=== PATIENT | female | born 2000 | race Caucasian/White ===

== ENCOUNTER 2025-01-22 18:27 | Outpatient (REF) | payer OTHER, SELFPAY | END 2025-01-22 18:28 | disposition home or self-care (01) | LOC: LAB 18:27 | PROVIDERS: Family Provider Urology; Visit Provider Obstetrics & Gynecology | DX: Z01.419 Encounter for gynecological examination (general) (routine) without abnormal findings (principal) | CPT/HCPCS: 88175 ==

== ENCOUNTER 2025-05-16 12:21 | Outpatient (RCR) | payer OTHER, SELFPAY | END 2025-05-30 17:03 | disposition home or self-care (01) | LOC: LAB 12:21 | PROVIDERS: Family Provider Urology; Visit Provider Obstetrics & Gynecology | DX: Z51.81 Encounter for therapeutic drug level monitoring (principal); N92.6 Irregular menstruation, unspecified | CPT/HCPCS: 36415; 84702 ==

== ENCOUNTER 2025-06-06 08:45 | Outpatient (OUT) | payer OTHER, SELFPAY ==
--- OUTSIDE RECORDS SUMMARY | 2023-11-11 04:30 | XMS_ITS | Continuity of Care Document ---
Author Organization [facility] Address [address] [place] [address] Phone Care Team Providers Care Metrologist Name Role Phone Betty Carrera DDS Unavailable [...] Diagnoses Date Provider Providers Copied on Encounter [facility], [address] [place] [address], [id number], tel:[phone] Dental Clinic dn (chief complaint) Encounter for screening for dental disordersBody mass index [BMI] 21.0-21.9, adult Deandre HERNANDEZ Betty. . tel:[phone] Family History Family Member Type Diagnosis Age At Onset No Information Payers Payer name Insurance type Covered libertarian ID Mickey painter(s) D Hum[employer] Medicaid D[employer]quest [facility] [id number] [id number] D Medicaid ap - [facility] [id number] Social History Type Description Quantity Date Captured [...]
--- OUTSIDE RECORDS SUMMARY | 2025-06-06 08:50 | XMS_ITS | Encounter Summary ---
Author Organization [facility] Address [address] [place] [address] Care Team Providers Care Credit Collections Rep Name Role Phone Philip Francis DO Unavailable [phone] Encounter Details Date Type Department Care Team (Late Contact Info) Description 02/01/2025 Orders Only YADIRA SHOEMAKER [address] [place] [address] [place] [phone] Radha Valero MA [address] [facility] [place] [address] Social History Tobacco Use Types Packs/Day Years Used Date Smoking Tobacco: Never Passive Smoke Exposure: Never Smokeless Tobacco: Never Alcohol Use Standard Drinks/Week Comments Never 0 (1 standard drink = 0.6 oz pur e alcohol) Comments No Sex and Gender Information Value Date Recorded Sex Assigned at Not on file Legal Sex Female 10:11 PM EDT Gender Identity Not on file Sexual Orientation Not on file documented as of this encounter Plan of Treatment Upcoming Encounters Date Type Department Care Team (Late Contact Info) Description 01/30/2026 11:00 AM EDT Office Visit YADIRA SHOEMAKER [address] [place] [address] [place] [address] Efrem Rousseau DO [address] [facility] [address] [place], [place] [id number] documented as of this encounter Procedures Procedure Name Priority Date/Time Associated Diagnosis Comments PAP SMEAR Routine 01/22/2025 12:00 AM EDT documented in this encounter Results * Pap Smear (01/22/2025 12:00 AM EDT) Swab Cervical swab / Unknown us Efrem Rousseau DO LAB CYTOLOGY ORDERABLES Final Re sult EXTERNAL LAB documented in this encounter Visit Diagnoses Not on filedocumented in this encounter Care Teams Credit Collections Rep Relationship Specialty Start Date End Date Philip Francis DO [address] [facility] [address] [place] [address] PCP - Medical [place] [employer] 08/31/23 99 documented as of this encounter
--- OUTSIDE RECORDS SUMMARY | 2025-06-06 08:50 | XMS_ITS | Encounter Summary ---
Author Organization [facility] Address [address] [place] [address] Care Team Providers Care Varitype Operator Name Role Phone Philip Francis DO Unavailable [phone] Encounter Details Date Type Department Care Team (Late Contact Info) Description 05/30/2025 Clinisync Result Encounter [facility] External Department Unsolicited Efrem Rousseau DO [address] [place] [address] Social History Tobacco Use Types Packs/Day Years [...] Encounters Date Type Department Care Team (Late st Contact Info) Description 01/30/2026 11:00 AM EDT Office Visit YADIRA SHOEMAKER [address] [facility] [place] [phone] Efrem Rousseau DO [address] [place], [facility]11 documented as of this encounter Procedures Procedure Name Priority Date/Time Associated Diagnosis Comments [facility] PREG QUANT HCG Routine 05/30/2025 11 :15 AM EDT documented in this encounter Results * [facility] PREG QUANT HCG (05/30/2025 11:15 AM EDT) HCG QUANTITATIVE 37 mIU/mL [facility] Comment: 5-50 0.2-1 WEEK 50-500 1-2 WEEKS 100-5,000 2-3 WEEKS 500-10,000 3-4 WEEKS 1,000-50,000 4-5 WEEKS 10,000-100,000 5-6 WEEKS 15,000-200,000 6-8 WEEKS 10,000-100,000 2-3 MONTHS 05/30/2025 11:1 5 AM EDT 05/30/2025 12:00 PM EDT Narrative CLINISYNC - 05/30/2025 12:00 PM EDT Efrem Rousseau DO [facility] Final [facility] documented in this encounter Visit Diagnoses Not on filedocumented in this encounter Care Teams Varitype Operator Relationship Specialty Start Date End Date Philip Francis DO [address] [facility] [address] [place] [address] PCP - Medical [place] [employer] 08/31/23 99 documented as of this encounter
--- OUTSIDE RECORDS SUMMARY | 2025-06-06 08:50 | XMS_ITS | Clinical Summary ---
Author Organization [facility] Address [address] [place] [address] Care Team Providers Care Assistant Hvac Mechanic Name Role Phone Philip Francis DO Unavailable [phone] Allergies Active Allergy Reactions Criticality Noted Date Comments Ibuprofen Itching 01/25/2024 Other Reaction(s): Swelling Medications No known medications Active Problems Problem Noted Date Diagnosed Date Body mass index (BMI) of 19.0-19.9 in adult 10/31 Dysuria 11/13/2024 Frequency of urination 11/13/2024 Incomplete bladder emptying 11/13/2024 Mixed incontinence 11/13/2024 Nonsmoker 11/13/2024 Encounters Date Type Department Care Team Description 05/30/2025 Clinisync Result Encounter [facility] External Department Unsolicited Efrem Rousseau DO 05/24/2025 Clinisync Result Encounter [facility]OMS External Department Unsolicited Efrem Rousseau DO 05/20/2025 [place] [address] Radha Valero MA Error (VOID this visit) 05/20/2025 Telephone [facility] SHOEM[facility]ER [address] [place] [address] Radha Valero MA 05/16/2025 11:20 AM EDT Office Visit [facility] [place] SHOEMAKER [address] [place] [address] Efrem Rousseau DO Missed menses 05/16/2025 Clinisync Result Encounter NOMS External Department Unsolicited Efrem Rousseau DO 05/16/2025 Bamboo flowsheet [facility] [place] SHOEMAKER [address] [facility] [address] Efrem Rousseau DO 04/22/2025 11:00 AM EDT Office Visit [facility] [place] [address] Efrem Rousseau DO Missed menses 04/22/2025 Bamboo flowsheet [facility] [place] SHOEMAKER [address] [place] [address] [place] [address] Efrem Rousseau DO from Last 3 Months Family History Medical History Relation Name Comments Diabetes Maternal Grandfather Lymphoma Maternal Grandfather high blood pressure Maternal Grandfather Breast cancer Mother high blood pressure Mother Relation Name Status Comments Maternal Grandfather Mother Social History Tobacco Use Types Packs/Day Years Used Date Smoking Tobacco: Never Passive Smoke Exposure: Never Smokeless Tobacco: Never Tobacco Cessation:Counseling Given: Not Answered Alcohol Use Standard Drinks/Week Comments Never 0 (1 standard drink = 0.6 oz pur e alcohol) Comments No Sex and Gender Information Value Date Recorded Sex Assigned at Not on file Legal Sex Female 10:11 PM EDT Gender Identity Not on file Sexual Orientation Not on file Last Filed Vital Signs Vital Sign Reading Time Taken Comments Blood Pressure 100/62 05/16/2025 11:49 AM EDT Pulse 85 11/13/2024 7:47 PM EST Temperature 36.2 C (97.2 F) 11/13/2024 7:47 PM EST Respiratory Rate - - Oxygen Saturation 99% 11/13/2024 7:47 PM EST Inhaled Oxygen Concentration - - Weight 51.6 kg (113 lb 12.8 oz) 025 11:49 AM EDT Height 154.9 cm (5' 1 ) 10/03/2020 12:0 0 PM EST Body Mass Index 21.5 10/03/2020 12:00 PM EST Plan of Treatment Upcoming Encounters Date Type Department Care Team (Late st Contact Info) Description 01/30/2026 11:00 AM EDT Office Visit YADIRA [place] [address] Efrem Rousseau, DO [address] [place] [address] [place] [address] Health Maintenance Due Date Last Done Comments Influenza Vaccine (#1) 2025 Procedures Procedure Name Priority Date/Time Associated Diagnosis Comments TB PREG QUANT HCG Routine 05/30/2025 11 :15 AM EDT TBH PREG QUANT HCG Routine 05/24/2025 10 :35 AM EDT [facility] PREG QUANT HCG Routine 05/16/2025 12 :35 PM EDT POCT , URINE Routine 04/22/2025 11:18 AM EDT Missed menses from Last 3 Months Results * [facility] PREG QUANT HCG (05/30/2025 11:15 AM EDT) Only the most recent of3 resultswithin the time period is included. HCG QUANTITATIVE 37 mIU/mL [facility] Comment: 5-50 0.2-1 WEEK 50-500 1-2 WEEKS 100-5,000 2-3 WEEKS 500-10,000 3-4 WEEKS 1,000-50,000 4-5 WEEKS 10,000-100,000 5-6 WEEKS 15,000-200,000 6-8 WEEKS 10,000-100,000 2-3 MONTHS 05/30/2025 11:1 5 AM EDT 05/30/2025 12:00 PM EDT Narrative CLINISYNC - 05/30/2025 12:00 PM EDT us Efrem Rousseau DO CLINISY[facility] Final Result [facility] * (ABNORMAL) POCT , urine manually resulted (04/22/2025 11:18 AM EDT) Preg Test, Ur Positive Negative Urine 04/22/2025 11:1 8 AM EDT Efrem Rousseau DO POINT OF CARE TEST ENTER/EDIT OR DERABLES Final Result from Last 3 Months Insurance [employer] Care Teams Assistant Hvac Mechanic Relationship Specialty Start Date End Date Philip Francis DO [address] [place] [address] PCP - Medical [place] [employer] 08/31/23 99
--- OUTSIDE RECORDS SUMMARY | 2025-06-06 08:50 | XMS_ITS | Encounter Summary ---
Author Organization [facility] Address [address] [place] [address] Care Team Providers Care Oriental Medicine Practitioner Name Role Phone Philip Francis DO Unavailable [phone] Encounter Details Date Type Department Care Team (Late Contact Info) Description 05/24/2025 Clinisync Result Encounter NOMS External Department Unsolicited Efrem Rousseau, DO [address] [place] [id number] Social History Tobacco Use Types Packs/Day Years [...] AM EDT Office Visit YADIRA SHOEMAKER [address] [facility] [place] [place] [phone] Efrem Rousseau DO [address] [place], [facility]11 documented as of this encounter Procedures Procedure Name Priority Date/Time Associated Diagnosis Comments [facility] PREG QUANT HCG Routine 05/24/2025 10 :35 AM EDT documented in this encounter Results * [facility] PREG QUANT HCG (05/24/2025 10:35 AM EDT) HCG QUANTITATIVE 91 mIU/mL [facility] Comment: 5-50 0.2-1 WEEK 50-500 1-2 WEEKS 100-5,000 2-3 WEEKS 500-10,000 3-4 WEEKS 1,000-50,000 4-5 WEEKS 10,000-100,000 5-6 WEEKS 15,000-200,000 6-8 WEEKS 10,000-100,000 2-3 MONTHS 05/24/2025 10:3 5 AM EDT 05/24/2025 10:36 AM EDT Narrative CLINISYNC - 05/24/2025 11:29 AM EDT Efrem Rousseau DO [facility] documented in this encounter Visit Diagnoses Not on filedocumented in this encounter Care Teams Oriental Medicine Practitioner Relationship Specialty Start Date End Date Philip Francis DO [address] [facility] [address] [place] [address] PCP - Medical [place] [employer] 08/31/23 99 documented as of this encounter
== END 2025-06-06 08:46 | disposition home or self-care (01) ==
LOC: LAB 08:47
PROVIDERS: Family Provider Urology; Visit Provider Obstetrics & Gynecology
DX: N92.6 Irregular menstruation, unspecified (principal)
CPT/HCPCS: 36415; 84702

== ENCOUNTER 2025-06-12 11:04 | Outpatient (RCR) | payer OTHER, SELFPAY | END 2025-06-29 23:59 | disposition home or self-care (01) | LOC: LAB 11:04 | PROVIDERS: Family Provider Urology; Visit Provider Obstetrics & Gynecology | DX: N92.6 Irregular menstruation, unspecified (principal) | CPT/HCPCS: 36415; 84702 ==

== ENCOUNTER 2025-08-13 09:34 | Outpatient (OUT) | payer OTHER, SELFPAY ==
--- OUTSIDE RECORDS SUMMARY | 2025-08-13 09:37 | XMS_ITS | Encounter Summary ---
Author Organization [facility] Address [address] [place] [address] Care Team Providers Care Web Press Jogger Name Role Phone Philip Francis DO Unavailable [phone] Encounter Details Date Type Department Care Team (Late Contact Info) Description 06/12/2025 Results Follow-Up YADIRA SHOEMAKER [address] [place] [address] Candace Yanez LPN [address] [employer] [place] [id number] [facility] PREG QUANT HCG Social History Tobacco Use Types Packs/Day Years [...] on file documented as of this encounter Miscellaneous Notes * Result Encounter Note - Candace Yanez LPN - 06/12/2025 8:46 AM EDT Left pt detailed voicemail to lab drawn this week documented in this encounter Plan of Treatment Upcoming Encounters Date Type Department Care Team (Late Contact Info) Description 01/30/2026 11:00 AM EDT Office Visit [facility]OMP[facility]OEMAKER [address] [facility] [address] Efrem Rousseau DO [address] [place] [address] [place] [address] documented as of this encounter Visit Diagnoses Not on filedocumented in this encounter Care Teams Web Press Jogger Relationship Specialty Start Date End Date Philip Francis DO [address] [place] [address] PCP - Medical [place] [employer] 08/31/23 99 documented as of this encounter
--- OUTSIDE RECORDS SUMMARY | 2025-08-13 09:37 | XMS_ITS | Encounter Summary ---
Author Organization [facility] Address [address] [place] [address] Care Team Providers Care Hydrographic Surveyor Name Role Phone Philip Francis DO Unavailable [phone] Encounter Details Date Type Department Care Team (Late Contact Info) Description 06/12/2025 Results Follow-Up [facility]A [facility]AKER [facility] [place] [place] [address] Candace Yanez LPN [address] [email or web address] [place] [id number] [facility] PREG QUANT HCG Social History Tobacco [...] Note - Candace Yanez LPN - 06/12/2025 1:26 PM EDT Pt notified documented in this encounter Plan of Treatment Upcoming Encounters Date Type Department Care Team (Late Contact Info) Description 01/30/2026 11:00 AM EDT Office Visit [facility] SHOEMAKER [facility] [place] [place] [address] Efrem Rousseau DO [address] [facility] [place] [address] documented as of this encounter Visit Diagnoses Not on filedocumented in this encounter Care Teams Hydrographic Surveyor Relationship Specialty Start Date End Date Philip Francis DO [address] [facility] [address] [place] [address] PCP - Medical [place] [employer] 08/31/23 99 documented as of this encounter
--- OUTSIDE RECORDS SUMMARY | 2025-08-13 09:37 | XMS_ITS | Encounter Summary ---
Author Organization [facility] Address [address] [place] [address] Care Team Providers Care Industrial Analyst Name Role Phone Philip Francis DO Unavailable [phone] Encounter Details Date Type Department Care Team (Late Contact Info) Description 02/01/2025 Orders Only YADIRA SHOEMAKER [address] [place] [address] [place] [phone] Radha Valero MA [address] [place] [address] Social History Tobacco Use Types Packs/Day Years [...] 11:00 AM EDT Office Visit YADIRA SHOEMAKER [address] [place] [address] [place] [address] Efrem Rousseau DO [address] [facility] [address] [place], [place] [phone] documented as of this encounter Procedures Procedure Name Priority Date/Time Associated Diagnosis Comments PAP SMEAR Routine 01/22/2025 12:00 AM EDT documented in this encounter Results * Pap Smear (01/22/2025 12:00 AM EDT) Swab Cervical swab / Unknown us Efrem Rousseau DO LAB CYTOLOGY ORDERABLES Final Re sult EXTERNAL LAB documented in this encounter Visit Diagnoses Not on filedocumented in this encounter Care Teams Industrial Analyst Relationship Specialty Start Date End Date Philip Francis DO [address] [facility] [address] [place] [address] PCP - Medical [place] [employer] 08/31/23 99 documented as of this encounter
--- OUTSIDE RECORDS SUMMARY | 2025-08-13 09:39 | XMS_ITS | CCD ---
Author Organization [facility] Care Team Providers Care Marketing Operations Associate Name Role Phone Hardik Wooten Unavailable DR EDGARD PERKINS Primary Care Unavailable CARLOS, DR SHAH Admitting Unavailable CARLOS, DR SHAH Consulting Unavailable CARLOS, DR SHAH Attending Unavailable JAILYN ROWLEY Consulting Unavailable CHARLEEN Jha Attending Provider [phone] Sisi Jha Attending Unavailable Sisi Jha Admitting Unavailable NON STAFF Primary Care Unavailable NON STAFF Primary Care Provider UnavailGERMAN May Primary Care Physician GERMAN LEDESMA Attending Unavailable GERMAN LEDESMA Admitting Unavailable Philip Francis DO Unavailable GERMAN LEDESMA A Attending Unavailable BALTAZAR GERMAN A Attending Unavailable FOX LEDESMAY A Attending Unavailable FOX LEDESMAY A Attending Unavailable BALTAZAR GERMAN A Admitting Unavailable GERMAN LEDESMA A Attending Unavailable Philip Francis DO Unavailable [phone] BEN ROUSSEAU Attending Unavailable BEN ROUSSEAU Attending Unavailable LICHA ARGUELLES Attending Unavailable BEN ROUSSEAU Attending Unavailable Allergies Allergy Classification Reported Allergen(s) Allergy Type Date of Onset Reaction(s) Facility (20 sources) Ibuprofen; Translations: [ibuprofen] Drug Allergy 4 Swelling (morphologic abnormality), Itching [facility] (1 source) Ibuprofen Drug Allergy [facility] (1 source) Milk Drug allergy (disorder) [facility] (1 source) Ibuprofen Drug Allergy 4 [facility] (3 sources) Milk Products; Translations: [Milk Products] Food allergy Cramping sensation quality (qualifier value) [facility] Medications Current Medications Medication Drug Class(es) Dates Sig (Normalized) Sig (Original) ergocalciferol 0.05 mg oral capsule (8 sources) Provitamin D2 Compound Start: 09-07-2024 End: 04-22-2025 take 1 capsule by mouth once daily ergocalciferol (Vitamin D-2) 50 MCG (1999 UT) capsule Take 1 capsule by mouth Daily 09/07/2024 04/22/2025 Discontinued (Other) fluconazole 150 mg oral tablet (2 sources) Azole Antifungal Start: 10-19-2021 nitrofurantoin, macrocrystals 25 mg / nitrofurantoin, monohydrate 75 mg oral capsule (8 sources) Nitrofuran Antibacterial Start: 01-22-2025 End: 01-29-2025 take 1 capsule by mouth in the morning nitrofurantoin, macrocrystal-monohy drate, (Macrobid) 100 MG capsule Indications: Frequency of urination Take 1 capsule (100 mg) by mouth in the morning and 1 capsule (100 mg) before bedtime. Do all this for 7 days. 14 capsule 01/22/2025 01/29/2025 Active Start: 11-13-2024 End: 11-20-2024 take 1 capsule by mouth in the morning nitrofurantoin, macrocrystal-monohydrate , (Macrobid) 100 MG capsule Indications: Acute cystitis with hematuria Take 1 capsule (100 mg) by mouth in the morning and 1 capsule (100 mg) before bedtime. Do all this for 7 days. 14 capsule 11/13/2024 11/20/2024 Active Start: 03-09-2024 End: 05-15-2024 take 1 capsule by mouth every twelve hours at mealtime Nitrofurantoin Monohyd/M-Cryst (Macrobid ) 100 mg capsule Discontinued 100 MG PO Every 12 hours 14 March 09, 2024 12:00am May 15, 2024 10:23am must administer with a meal/food ondansetron 4 mg disintegrating oral tablet (1 source) Serotonin-3 Receptor Antagonist Start: 05-15-2024 take 4 mg by mouth every six hours Ondansetron Active 4 MG PO Q6H 20 May 15, 2024 12:00am sulfamethoxazole 800 mg / trimethoprim 160 mg oral tablet (2 sources) Dihydrofolate Reductase Inhibitor Antibacterial, Sulfonamide Antimicrobial Start: 10-19-2021 take 1 tablet by mouth every twelve hours Start: 10-19-2021 take 1 tablet by alvino th every twelve hours Bactrim DS 800-160 MG 1 tablet Orally Twice a day for 7 day(s) Sep, Active Completed/Discontinued Medications Medication Drug Class(es) Dates Sig (Normalized) Sig (Original) phenazopyridine hydrochloride 200 mg oral tablet (3 sources) Start: 03-09-2024 End: 05-15-2024 take 1 tablet by mouth three times daily Phenazopyridine (Pyridium) 200 mg tablet Discontinued 200 MG PO Three times daily 6 2 March 09, 2024 12:00am May 15, 2024 10:23am Problems Active Problems Problem Classification Problem Date Documented Da te Episodic/Chronic Genitourinary symptoms and ill-defined conditions (18 sources) Mixed incontinence; Translations: [Incontinence] Onset: 08-18-2020 12-22-2020 Chronic Menstrual disorders (4 sources) Missed period; Translations: [Irregular menstruation, unspecified] 04-22-2025 Chronic Other female genital disorders (2 sources) Vaginal discomfort; Translations: [Unspecified condition associated with female genital organs and menstrual cycle] 11-13-2024 Episodic Residual codes; unclassified (2 sources) Family history of malignant neoplasm of breast in first degree relative; Translations: [Family history of malignant neoplasm of breast] 01-22-2025 Episodic Unclassified (1 source) Non-smoker 09-03-2024 Urinary tract infections (4 sources) Other cystitis without hematuria; Translations: [Recurrent urinary tract infection] Onset: 08-18-2020 07-18-2020 Episodic Past or Other Problems Problem Classification Problem Date Documented Date Episodic/Chronic Genitourinary symptoms and ill-defined conditions (20 sources) Frequency of micturition; Translations: [Personal history of urinary (tract) infections] Onset: 08-18-2020 Resolved: 10-19-2021 Episodic Mycoses (1 source) Candidiasis of vulva and vagina Onset: 10-19-2021 Resolved: 10-19-2021 Episodic Other diseases of bladder and urethra (4 sources) Unspecified urethral stricture, female; Translations: [UNSP URETHRAL STRICTURE FEMALE] Onset: 08-14-2020 Episodic Other female genital disorders (1 source) Other specified noninflammatory disorders of vagina Onset: 10-19-2021 Resolved: 10-19-2021 Episodic Other nutritional; endocrine; and metabolic disorders (17 sources) Body mass index less than 20; Translations: [Body mass index (BMI) 19.9 or less, adult] Onset: 11-13-2024 09-03-2024 Episodic Residual codes; unclassified (16 sources) Non-smoker; Translations: [Other specified health status] Onset: 11-13-2024 11-13-2024 Episodic Results Test Name Value Interpretation Reference Range Facility [facility] PREG QUANT HCGon 025 HCG QUANTITATIVE 5 mIU/mL [facility] Comment on above: 5-50 0.2-1 WEEK 50-500 1-2 WEEKS 100-5,000 2-3 WEEKS 500-10,000 3-4 WEEKS 1,000-50,000 4-5 WEEKS 10,000-100,000 5-6 WEEKS 15,000-200,000 6-8 WEEKS 10,000-100,000 2-3 MONTHS [facility] HCGon 025 HCG QUANTITATIVE 11 mIU/mL [facility] Comment on above: 5-50 0.2-1 WEEK 50-500 1-2 WEEKS 100-5,000 2-3 WEEKS 500-10,000 3-4 WEEKS 1,000-50,000 4-5 WEEKS 10,000-100,000 5-6 WEEKS 15,000-200,000 6-8 WEEKS 10,000-100,000 2-3 MONTHS [facility] PREG QUANT HCGon 025 HCG QUANTITATIVE 37 mIU/mL [facility] Comment on above: 5-50 0.2-1 WEEK 50-500 1-2 WEEKS 100-5,000 2-3 WEEKS 500-10,000 3-4 WEEKS 1,000-50,000 4-5 WEEKS 10,000-100,000 5-6 WEEKS 15,000-200,000 6-8 WEEKS 10,000-100,000 2-3 [facility]THS [facility] PREG QUANT HCGon 025 HCG QUANTITATIVE 91 mIU/mL [facility] Comment on above: 5-50 0.2-1 WEEK 50-500 1-2 WEEKS 100-5,000 2-3 WEEKS 500-10,000 3-4 WEEKS 1,000-50,000 4-5 WEEKS 10,000-100,000 5-6 WEEKS 15,000-200,000 6-8 WEEKS 10,000-100,000 2-3 [facility] P[facility] QUANT HCGon 025 HCG QUANTITATIVE 130 mIU/mL [facility] Comment on above: 5-50 0.2-1 WEEK 50-500 1-2 WEEKS 100-5,000 2-3 WEEKS 500-10,000 3-4 WEEKS 1,000-50,000 4-5 WEEKS 10,000-100,000 5-6 WEEKS 15,000-200,000 6-8 WEEKS 10,000-100,000 2-3 [facility] ( test) Ql (U)o n 04-22-2025 Interpretation and review of laboratory results Abnormal [facility] Preg Test, Ur Positive Negative [facility] e IGP,APTIMA HPV,AGE GDLNon AGE GDLN ACOG TESTING Note . [facility] Comment on above: TESTS RESULT FLAG UN ITS REF RANGE LAB Clinician Provided Cytology Information Source.............Cervix;Endocervix No. of containers..01 ThinPrep Vial Age Algo ACOG Karen... -27 11 FLAG LEGEND: L-Low Normal,H-High Normal,LL-Alert Low,HH-Alert High <-Panic Low,>-Panic High,A-Abnormal,AA-Critical Abnormal Performed at: 01 =G [facility] [place] [address] Felicia Renee MD, IGP, RFX APTIMA HPV ASCU Note . [facility] Comment on above: TESTS RESULT FLAG UN ITS REF RANGE LAB DIAGNOSIS: 02 NEGATIVE FOR INTRAEPITHELIAL LESION OR MALIGNANCY. Specimen adequacy: 02 Satisfactory for evaluation. Endocervical and/or squamous metaplastic cells (endocervical component) are present. Performed by: Thomas Hurst, Client Program Manager ([facility]) . 02 Note: Note 03 The Pap smear is a screening test designed to aid in the detection of premalignant and malignant conditions of the uterine cervix. It is not a diagnostic procedure and should not be used as the sole means of detecting cervical cancer. Both false-positive and false-negative reports do occur. Test Methodology: Note 03 This liquid based ThinPrep(R) pap test was screened with the use of an image guided system. . 02 The HPV DNA reflex criteria were not met with this specimen result therefore, no HPV testing was performed. FLAG LEGEND: L-Low Normal,H-High Normal,LL-Alert Low,HH-Alert High <-Panic Low,>-Panic High,A-Abnormal,AA-Critical Abnormal Performed at: 02 [facility] [facility] [address] [place] [address] Wing Castillo MD, 03 WB [facility] [address] [address] Felicia Renee MD, Performed at: =G - [facility] [address] [id number] Senior Patrol Agent: Felicia Renee MD, Phone: [phone] Performed at: [facility] [address] [place], [place] [id number] Senior Patrol Agent: Wing Castillo MD, Phone: [phone] BRUSH-SPATULA CERVIX ENDOCERVIX [facility] HCG ( test) Ql (U)o n 01-22-2025 Interpretation and review of laboratory results Normal [facility] Preg Test, Ur Negative Negative [facility] Urinalysis macro (dipstick) panel (U)on 01-22-2025 Bilirubin, UA Negative Negative - 4(70) +++ mg/dL [facility] Blood, UA Positive Negative - 50 Duncan/mcL [facility] Comment on above: trace-intact Clarity, UA Clear [facility] re Color, UA Yellow [facility] Glucose, UA Negative Negative - 1999(110) ++++ mg/dL [facility] Interpretation and review of laboratory results Abnormal [facility] Ketones, UA Negative Negative - 160(16) ++++ mg/dL [facility] Leukocytes, UA Negative Negative - 500+++ Xi/mcL [facility] Nitrite, UA Negative Negative - Positive [facility] pH, UA 6.5 5 - 9 [facility] Protein, UA Negative Negative - 1999(20) ++++ mg/dL [facility] Spec Grav, UA 1.01 1 - 1.03 [facility] Urobilinogen, UA 0.2 0.2 - 12 mg/dL [facility] - Chemistry and C hemistry - challengeon 11-13-2024 Bilirubin Ql (U) Negative Negative [facility] Glucose [Mass/Vol] Negative Negative [facility] Ketones Ql (U) Negative Negative [facility] pH (U) 6 [pH] 5.0 - 6.0 [facility] Specific gravity (U) [Rel density] 1.015 1.001 - 1.035 [facility] Urobilinogen (U) [Mass/Vol] Negative 0.2 - 1.0 [facility] Laboratory - Hematology and Cell countson 11-13-2024 Hemoglobin Ql (U) 1+ Negative [facility] Laboratory - Urinalysison Nitrite Ql (U) Negative Negative [facility] Protein Ql (U) Negative Negative [facility] No Panel Informationon 11-13 Interpretation and review of laboratory results Abnormal [facility] LEUKOCYTES 3+ Negative [facility] e [facility] e CBC w/ Auto Diffon 4 Basophils/100 WBC (Bld) 1.1 % Normal 0.0-2.0 [facility] Comment on above: Performed By: #### 2 [id number] #### [facility] [address] [place] [address] Basophils/Leukocytes Auto (Bld) [Pure # fraction] 0.0 E9/L Normal 0.0-0.2 [facility] Comment on above: Performed By: #### 2 [id number] #### [facility] [address] [place] [address] Eosinophils (Bld) [#/Vol] 0.1 E9/L Normal 0.0-0.5 [facility] Comment on above: Performed By: #### 2 [id number] #### [facility] [address] [place] [address] Eosinophils/100 WBC (Bld) 2.1 % Normal 0.0-8.0 [facility] Comment on above: Performed By: #### 2 [id number] #### [facility] [address] [place] [address] Erythrocyte distribution width (RBC) [Ratio] 13.2 % Normal 10.9-14.2 [facility] Comment on above: Performed By: #### 2 [id number] #### [facility] [address] [place] [address] Hematocrit (Bld) [Volume fraction] 39.1 % Normal 34.0-46.0 [facility] Comment on above: Performed By: #### 2 [id number] #### [facility] [address] [place] [address] Hemoglobin (Bld) [Mass/Vol] 13.2 g/dL Normal 12.0-16.0 [facility] Comment on above: Performed By: #### 2 [id number] #### [facility] [address] [place] [address] Lymphocytes (Bld) [#/Vol] 1.3 E9/L Normal 1.0-4.0 [facility] Comment on above: Performed By: #### 2 [id number] #### [facility] [address] [place] [address] Lymphocytes/100 WBC (Bld) 32.6 % Normal 14.0-50.0 [facility] Comment on above: Performed By: #### 2 [id number] #### [facility] [address] [place] [address] MCH (RBC) [Entitic mass] 32.7 pg Normal 27.0-34.0 [facility] Comment on above: Performed By: #### 2 [id number] #### [facility] [address] [place] [address] MCHC (RBC) [Mass/Vol] 33.8 g/dL Normal 31.4-36.0 [facility] Comment on above: Performed By: #### 2 [id number] #### [facility] [address] [place] [address] MCV (RBC) [Entitic vol] 96.8 fL Normal 80.0-100.0 [facility] Comment on above: Performed By: #### 2 [id number] #### [facility] [address] [place] [address] Monocytes (Bld) [#/Vol] 0.3 E9/L Normal 0.2-1.0 [facility] Comment on above: Performed By: #### 2 [id number] #### [facility] [address] [place] [address] Neutrophils (Bld) [#/Vol] 2.2 E9/L Normal 2.0-7.5 [facility] Comment on above: Performed By: #### 2 [id number] #### [facility] [address] [place] [address] Neutrophils/100 WBC (Bld) 56.3 % Normal 36.0-75.0 [facility] Comment on above: Performed By: #### 2 [id number] #### [facility] [address] [place] [address] Platelet 365.0 E9/L Normal 150.0-500.0 [facility] Comment on above: Performed By: #### 2 [id number] #### [facility] [address] [place] [address] Platelet mean volume (Bld) [Entitic vol] 8.5 fL Normal 6.4-10.8 [facility] Comment on above: Performed By: #### 2 [id number] #### [facility] [address] [place] [address] RBC (Bld) [#/Vol] 4.0 E12/L Low 4.3-5.9 [facility] Comment on above: Performed By: #### 2 [id number] #### [facility] [address] [place] [address] WBC corrected for nucl RBC Auto (Bld) [#/Vol] 3.9 E9/L Low 4.0-11.0 [facility] Comment on above: Performed By: #### 2 [id number] #### [facility] [address] [place] [address] CHEMISTRYOrdered By: SYSTEM SYSTEM on 09-05-2024 25-hydroxyvitamin D3 [Mass/Vol] 20.1 ng/mL Low 30.0 - 100.0 ng/mL [facility] Albumin [Mass/Vol] 4.2 g/dL Normal 3.3 - 5.0 gm/dL [facility] Albumin/Globulin [Mass ratio] 1.3 {ratio} Normal 1.1 - 2.2 [facility] ALP [Catalytic activity/Vol] 45 [iU]/d Normal 21 - 98 Int._Unit/L [facility] ALT No additional P-5'-P [Catalytic activity/Vol] 13 [iU]/d Normal 6 - 46 Int._Unit/L [facility] Anion gap [Moles/Vol] 9 mmol/L Normal 6 - 16 mEq/L [facility] AST [Catalytic activity/Vol] 17 [iU]/d Normal 5 - 43 Int._Unit/L [facility] Bilirubin [Mass/Vol] 1.1 mg/dL Normal 0.0 - 1 .1 mg/dL [facility] Calcium [Mass/Vol] 9.1 mg/dL Normal 8.9 - 11. 1 mg/dL [facility] Chloride [Moles/Vol] 105 mmol/L Normal 101 - 1 11 mmol/L [facility] Cholesterol [Mass/Vol] 160 mg/dL Normal 120 - 200 mg/dL [facility] Cholesterol in HDL [Mass/Vol] 78 mg/dL Invalid Interpretation Code [facility] Comment on above: Result Comment: '>= 60 LOW RISK' '<= 40 HIGH RISK' Cholesterol in LDL [Mass/Vol] 67 mg/dL Normal <=129mg/dL [facility] Cholesterol in VLDL [Mass/Vol] 11 mg/dL Normal 7 - 40 mg/dL [facility] CO2 [Moles/Vol] 27 mmol/L Normal 21 - 31 mmol/L [facility] Cobalamin (Vitamin B12) [Mass/Vol] 303 pg/mL Normal 50 - 1500 pg/mL [facility] Creatinine [Mass/Vol] 0.8 mg/dL Normal 0.5 - 1.3 mg/dL [facility] eGFR 105 mL/min/1.73 m2 Normal >=59mL/mi n/1 .73 m2 [facility] Globulin (S) [Mass/Vol] 3.2 g/dL Normal 1.4 - 4.0 gm/dL [facility] Glucose [Mass/Vol] 84 mg/dL Normal 55 - 199 mg/dL [facility] Potassium [Moles/Vol] 4.1 mmol/L Normal 3.5 - 5.3 mmol/L [facility] Protein [Mass/Vol] 7.4 g/dL Normal 6.0 - 7.8 gm/dL [facility] Sodium [Moles/Vol] 137 mmol/L Normal 135 - 145 mmol/L [facility] Triglyceride [Mass/Vol] 53 mg/dL Normal <=149mg/dL [facility] TSH Qn 1.80 m[IU]/L Normal 0.34 - 5.60 mcIU/mL [facility] Urea nitrogen [Mass/Vol] 10 mg/dL Normal 5 - 21 mg/dL [facility] Urea nitrogen/Creatinine [Mass ratio] 12 mg/mg Normal 10 - 20 [facility] CMPon 09-05-2024 Albumin [Mass/Vol] 4.2 g/dL Normal 3.3-5.0 [facility] Comment on above: Performed By: #### 2 [id number] #### [facility] [address] [place] [address] Albumin/Globulin (S) [Mass conc ratio] 1.3 Normal 1.1-2.2 [facility] Comment on above: Performed By: #### 2 [id number] #### [facility] [address] [place] [address] ALP [Catalytic activity/Vol] 45 Int._Unit/L Normal 21-98 [facility] Comment on above: Performed By: #### 2 [id number] #### [facility] [address] [place] [address] ALT No additional P-5'-P [Catalytic activity/Vol] 13 Int._Unit/L Normal 6-46 [facility] Comment on above: Performed By: #### 2 [id number] #### [facility] [address] [place] [address] Anion gap [Moles/Vol] 9 mmol/L Normal 6-16 [facility] Comment on above: Performed By: #### 2 [id number] #### [facility] [address] [place] [address] AST [Catalytic activity/Vol] 17 Int._Unit/L Normal 5-43 [facility] Comment on above: Performed By: #### 2 [id number] #### [facility] [address] [place] [address] Bilirubin [Mass/Vol] 1.1 mg/dL Normal 0.0-1.1 [facility] Comment on above: Performed By: #### 2 [id number] #### [facility] [address] [place] [address] Calcium [Mass/Vol] 9.1 mg/dL Normal 8.9-11.1 [facility] Comment on above: Performed By: #### 2 [id number] #### [facility] [address] [place] [address] Chloride [Moles/Vol] 105 mmol/L Normal 101-111 [facility] Comment on above: Performed By: #### 2 [id number] #### [facility] [address] [place] [address] CO2 [Moles/Vol] 27 mmol/L Normal 21-31 [facility] Comment on above: Performed By: #### 2 [id number] #### [facility] [address] [place] [address] Creatinine [Mass/Vol] 0.8 mg/dL Normal 0.5-1.3 [facility] Comment on above: Performed By: #### 2 [id number] #### [facility] [address] [place] [address] Globulin (S) [Mass/Vol] 3.2 g/dL Normal 1.4-4.0 [facility] Comment on above: Performed By: #### 2 [id number] #### [facility] [address] [place] [address] Glucose [Mass/Vol] 84 mg/dL Normal 55-199 [facility] Comment on above: Performed By: #### 2 [id number] #### [facility] [address] [place] [address] Potassium [Moles/Vol] 4.1 mmol/L Normal 3.5-5.3 [facility] Comment on above: Performed By: #### 2 [id number] #### [facility] [address] [place] [address] Protein [Mass/Vol] 7.4 g/dL Normal 6.0-7.8 [facility] Comment on above: Performed By: #### 2 [id number] #### [facility] [address] [place] [address] Sodium [Moles/Vol] 137 mmol/L Normal 135-145 [facility] Comment on above: Performed By: #### 2 [id number] #### [facility] [address] [place] [address] Urea nitrogen [Mass/Vol] 10 mg/dL Normal 5-21 [facility] Comment on above: Performed By: #### 2 [id number] #### [facility] [address] [place] [address] Urea nitrogen/Creatinine [Mass ratio] 12 No Units Normal 10-20 [facility] Comment on above: Performed By: #### 2 [id number] #### [facility] [address] [place] [address] HEMATOLOGYOrdered By: SYSTEM SYSTEM on 09-05-2024 Basophils/100 WBC (Bld) 1.1 % Normal 0.0 - 2.0 % [facility] Basophils/Leukocytes Auto (Bld) [Pure # fraction] 0.0 E9/L Normal 0.0 - 0.2 E9/L [facility] Eosinophils (Bld) [#/Vol] 0.1 E9/L Normal 0.0 - 0.5 E9/L [facility] Eosinophils/100 WBC (Bld) 2.1 % Normal 0.0 - 8.0 % [facility] Erythrocyte distribution width (RBC) [Ratio] 13.2 % Normal 10.9 - 14.2 % [facility] Hematocrit (Bld) [Volume fraction] 39.1 % Normal 34.0 - 46.0 % [facility] Hemoglobin (Bld) [Mass/Vol] 13.2 g/dL Normal 12.0 - 16.0 gm/dL [facility] Lymphocytes (Bld) [#/Vol] 1.3 E9/L Normal 1.0 - 4.0 E9/L [facility] Lymphocytes/100 WBC (Bld) 32.6 % Normal 14.0 - 50.0 % [facility] MCH (RBC) [Entitic mass] 32.7 pg Normal 27.0 - 34.0 pg [facility] MCHC (RBC) [Mass/Vol] 33.8 g/dL Normal 31.4 - 36.0 gm/dL [facility] MCV (RBC) [Entitic vol] 96.8 fL Normal 80.0 - 100.0 fL [facility] Monocytes (Bld) [#/Vol] 0.3 E9/L Normal 0.2 - 1.0 E9/L [facility] Monocytes/100 WBC (Bld) 7.9 % Normal 4.0 - 14.0 % [facility] Neutrophils (Bld) [#/Vol] 2.2 E9/L Normal 2.0 - 7.5 E9/L [facility] Neutrophils/100 WBC (Bld) 56.3 % Normal 36.0 - 75.0 % [facility] Platelet 365.0 E9/L Normal 150.0 - 500.0 E9/L [facility] Platelet mean volume (Bld) [Entitic vol] 8.5 fL Normal 6.4 - 10.8 fL [facility] RBC (Bld) [#/Vol] 4.0 E12/L Low 4.3 - 5.9 E12/L [facility] WBC corrected for nucl RBC Auto (Bld) [#/Vol] 3.9 E9/L Low 4.0 - 11.0 E9/L [facility] Lipid Panelon 09-05-2024 Cholesterol [Mass/Vol] 160 mg/dL Normal 120-200 [facility] Comment on above: Performed By: #### 2 [id number] #### [facility] [address] [place] [address] Cholesterol in HDL [Mass/Vol] 78 mg/dL Invalid Interpretation Code [facility] Comment on above: Result Comment: '>= 60 LOW RISK' '<= 40 HIGH RISK' Performed By: #### 2 [id number] #### [facility] [address] [place] [address] Cholesterol in LDL [Mass/Vol] 67 mg/dL Normal <=129 [facility] Comment on above: Performed By: #### 2 [id number] #### [facility] [address] [place] [address] Cholesterol in VLDL [Mass/Vol] 11 mg/dL Normal 7-40 [facility] Comment on above: Performed By: #### 2 [id number] #### [facility] [address] [place] [address] Triglyceride [Mass/Vol] 53 mg/dL Normal <=149 [facility] Comment on above: Performed By: #### 2 [id number] #### [facility] [address] [place] [address] TSH With T4fr Reflexon 09-05 TSH Qn 1.80 m[IU]/L Normal 0.34-5.60 [facility] Comment on above: Performed By: #### 1 [id number] #### [facility] [address] [place] [address] Vit B12on 09-05-2024 Cobalamin (Vitamin B12) [Mass/Vol] 303 pg/mL Normal 50-1500 [facility] Comment on above: Performed By: #### [id number] #### [facility] [address] [place] [address] Vitamin D 25 Hydroxyon 09-05 25-hydroxyvitamin D3 [Mass/Vol] 20.1 ng/mL Low 30.0-100.0 [facility] Comment on above: Performed By: #### 5 [id number] #### [facility] [address] [place] [address] eGFRon 09-05-2024 eGFR 105 mL/min/1.73 m2 Normal >=59 [facility] Comment on above: Performed By: #### 1 [id number] #### [facility] [address] [place] [address] Ambulatory Visit Summaryon 11-03-2023 Ambulatory Visit Summary Ambulatory Visit Summary SHIV RIOS:2000 Visit Date:09/03/2024 Ambulatory Visit Instructions Your Diagnosis Well adult exam Encounter to establish care Body mass index (BMI) of 19.0-19.9 in adult Nonsmoker Your Care Team Attending Physician - GERMAN LEDESMA CNP Primary Care Physician - GERMAN LEDESMA CNP Procedures Performed Cystoscopy (08/14/2020). Discharge Vitals Temperature (Oral) 36.6 ???C Heart Rate (Peripheral) 77 Respiratory Rate 18 Blood Pressure 124/76 Height 156.5 cm Height 62 in Weight 48.6 kg Weight 106.92 lb BMI 19.84 What to do next Scheduled Follow-Up Appointments Tuesday 8:20 AM EST With: Where: [address] [address]24 9:00 AM EST With: GERMAN LEDESMA CNP Where: [address] [address]- Allergies Milk Products (Cramping) ibuprofen (Swelling) Problems Ongoing - Any problem that you are currently receiving treatment for. Body mass index (BMI) of 19.0-19.9 in adult Dysuria Frequency of urination Incomplete bladder emptying Mixed incontinence Nonsmoker Recurrent UTI Patient Survey You may receive a survey via text or e-mail asking about your office visit. Please share your experience with us by completing your survey. We appreciate your feedback and thank you for choosing us for your care. Normal [facility] Family Medicine Office/Clini c Noteon 09-03-2024 Family Medicine Office/Clinic Note Family Medicine Office/Clinic Note Chief Complaint Establish Care HPI Staff Pt presents today to Establish Care: History: Any previous diagnosis: Derm History of seeing any specialist: Urology 2019 When was your last doctors visit: yrs ago Last provider: unsure Any recent labs: would like to get done today Health Maintenance UTD: Colonoscopy: NA Mammogram: NA Pelvic/Pap: scheduled here in December Acute: Current issues/complaints: Not at this time. History of Present Illness 23 year old patient presents today to establish care and for a well exam. She brings up concern of recent weight loss. She states her baseline weight is around 105 pounds however in March of this year her weight got down to 97 pounds. She states she had financial stress around this time that caused her to neglect her normal eating habits. She requests to be checked for vitamin deficiency. Review of Systems PHQ Score Initial Depression Screen Score: 0 SCORE Constitutional: no fever, no chills, no sweats, no weakness Skin: no Jaundice, no rash, no lesions, nopetechiae ENMT: no ear pain, no sore throat, no congestion, no hoarseness Respiratory: no shortness of breath, no cough, no orthopnea, no wheezing Cardiovascular: no chest pain, no palpitations, no edema Gastrointestinal: no nausea, no vomiting, no diarrhea, no GI bleeding Genitourinary: no dysuria, no hematuria, no discharge, no pain Musculoskeletal: no back pain, no trauma Neurologic: no headache, no dizziness, no numbness, no weakness Psychiatric: no sleeping problems, no irritability, no mood swings/depression. Heme/Lymph: no bleeding tendency, no bruising tendency, no petechiae, no swollen nodes Allergy/Immunologic: no seasonal allergies, no food allergies, no recurrent infections, no impaired immunity Additional ROS info: Except as noted in the above Review of Systems and in the History of Present Illness all other systems have been reviewed and are negative or noncontributory. Physical Exam Vitals & Measurements T: 36.6 ???C(Oral) HR: 77(Peripheral) RR: 18 BP: 124/76 SpO2: 99% HT: 62 in HT: 156.5 cm WT: 48.6 kg WT: 106.92 lb BMI: 19.84 General: alert, no acute distress Skin: warm, dry Head: no trauma, normocephalic Neck: Trachea midline, no adenopathy, no tenderness Eye: normal conjunctiva, sclera clear ENMT: TM's clear, oral mucosa moist, no pharyngeal erythema or exudate Cardiovascular: regular rate and rhythm, normal peripheral perfusion Respiratory: Lungs CTA, respirations non labored Chest wall: no deformity. Gastrointestinal: soft, non distended, no tenderness, no guarding. Back: No tenderness, Normal ROM, Normal alignment. Extremities: no deformity, no trauma Neurological: oriented x 4, LOC appropriate for age, CN II-XII intact, motor strength equal & normal bilaterally, sensation equal & normal bilaterally, speech normal Psychiatric: cooperative, affect appropriate for age, normal judgement, normal psychiatric thoughts. Assessment/Plan 1. Well adult exam (Z00.00: Encounter for general adult medical examination without abnormal findings) Immunizations UTD Encouraged to complete appointment with Dr. 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 Encounter to establish care (Z76.89: Persons encountering health services in other specified circumstances) Ordered: CBC w/ Auto Diff Comprehensive Metabolic Panel Lipid Panel TSH With T4fr Reflex Vitamin B12 Level Vitamin D 25 Hydroxy 3. Body mass index (BMI) of 19.0-19.9 in adult (Z68.1: Body mass index [BMI] 19.9 or less, adult) BMI 19.84, encouraged to continue high protein diet 4. Nonsmoker (Z78.9: Other specified health status) Continue as a nonsmoker Follow-up With When Contact Information GERMAN LEDESMA CNP, DARREN Within [address] [place] [id number] [place] (1) Additional Instructions: Well adult Visit Patient Education Health Maintenance, Female Problem List/Past Medical History Ongoing Body mass index (BMI) of 19.0-19.9 in adult Dysuria Frequency of urination Incomplete bladder emptying Mixed incontinence Nonsmoker Recurrent UTI Historical No qualifying data Procedure/Surgical History Cystoscopy (08/14/2020). Medications No active medications Allergies Milk Products (Cramping) ibuprofen (Swelling) Social History Alcohol Never., 08/30/2024 Substance Abuse Never., 08/30/2024 Tobacco Never (less than 100 in lifetime) Tobacco Use:. Never Smokeless Tobacco Use:. Household tobacco concerns: No. Yes, 09/03/2024 Family History Hypertension: Mother. Primary malignant neoplasm of female breast: Mother. Immunizations Vaccine Date Status meningococcal conjugate vaccine 06/13/2017 Recorded meningococcal conjugate vaccine (more content not included)... Normal [facility] Comment on above: Result Comment: Elec tronically Signed By: GERMAN LEDESMA CNP\.br\Date and Time Signed: 09/03/24 09:39 EST Laboratory - Chemistry and C hemistry - challengeon 03-09-2024 Bilirubin Ql (U) Negative [facility] Glucose (U) [Mass/Vol] Negative [facility] Ketones Ql (U) Negative [facility] pH (U) 6.0 [pH] [facility] Specific gravity (U) [Rel density] 1.005 [facility] Laboratory - Specimen inform ationon 03-09-2024 Appearance (U) clear [facility] Color (U) lightyellow [facility] Laboratory - Urinalysison Leukocyte esterase Test strip Ql (U) small [facility] Nitrite Ql (U) See comment [facility] Comment on above: WNL Protein Ql (U) Negative [facility] No Panel Informationon 03-09 Urine Occult Blood moderate [facility] Urine Cultureon 03-09-2024 Bacteria identified Cx Nom (U) <9,000 colonies/ml mixed bacterial skin contaminants 2 Days PERFORMED BY: [facility] [address] [place] [address] PATHOLOGIST DECKHAND MAINTENANCE SOPHIA MCARTHUR M.D. Normal The Count Includes [facility] Comment on above: Performed By: #### C UU #### [facility] [address] Urine culture routineOrdered By: Sisi Jha on 03-09-2024 Bacteria identified Cx Nom (U) 2 Days [facility] Urinalysis - DIPSTICKon 2 Appearance (U) cloudy [facility] Other Bilirubin Ql (U) Negative [employer] Other Color (U) light yellow [employer] Other Glucose Ql (U) Negative [facility] Other Hemoglobin Ql (U) Negative [employer] Other Ketones Ql (U) Negative [facility] Other Leukocyte esterase Test strip Ql (U) moderate [employer] Other Nitrite Ql (U) Negative [facility] Other pH (U) 5.0 [pH] [employer] Other Protein Ql (U) Negative [facility] Other Specific gravity (U) [Rel density] 1.010 [employer] Other Urobilinogen (U) [Mass/Vol] wnl [employer] Other Vital Signs Date Time Vital Sign Value Performing Clinician Facility 05-16-2025 11:49-0400 Body mass index (BMI) [Ratio] 21.5 kg/m2 Ben Onelia DO Work Phone: [facility] 05-16-2025 11:49-0400 Body weight 51.62 kg Ben Onelia DO Work Phone: [facility] 05-16-2025 11:49-0400 Diastolic blood pressure 62 mm[Hg] Ben Onelia DO Work Phone: [facility] 05-16-2025 11:49-0400 Systolic blood pressure 100 mm[Hg] Ben Onelia DO Work Phone: [facility] 04-22-2025 11:10-0400 Body mass index (BMI) [Ratio] 21.69 kg/m2 Ben Onelia DO Work Phone: [facility] 04-22-2025 11:10-0400 Body weight 52.07 kg Ben Onelia DO Work Phone: [facility] 04-22-2025 11:10-0400 Diastolic blood pressure 76 mm[Hg] Ben Onelia DO Work Phone: [facility] 04-22-2025 11:10-0400 Systolic blood pressure 118 mm[Hg] Ben Onelia DO Work Phone: [facility] 01-22-2025 11:22-0400 Body mass index (BMI) [Ratio] 21.69 kg/m2 Ben Onelia DO Work Phone: [facility] 01-22-2025 11:22-0400 Body weight 52.07 kg Ben Onelia DO Work Phone: [facility] 01-22-2025 11:22-0400 Diastolic blood pressure 70 mm[Hg] Ben Onelia DO Work Phone: [facility] 01-22-2025 11:22-0400 Systolic blood pressure 120 mm[Hg] Ben Onelia DO Work Phone: [facility] 11-13-2024 19:47-0500 Body mass index (BMI) [Ratio] 21.73 kg/m2 Licha Kiepert [employer] Work Phone: [facility] 11-13-2024 19:47-0500 Body temperature 97.2 [degF] Licha Kiepert [employer] Work Phone: [facility] 11-13-2024 19:47-0500 Body weight 52.16 kg Licha Kiepert [employer] Work Phone: [facility] 11-13-2024 19:47-0500 Diastolic blood pressure 68 mm[Hg] Licha Kiepert [employer] Work Phone: [facility] 11-13-2024 19:47-0500 Heart rate 85 /min Licha Kiepert [employer] Work Phone: [facility] 11-13-2024 19:47-0500 SaO2% (BldA) [Mass fraction] 99 % Licha Kiepert [employer] Work Phone: [facility] 11-13-2024 19:47-0500 Systolic blood pressure 100 mm[Hg] Licha Kiepert [employer] Work Phone: [facility] 05-15-2024 10:23-0400 Body height 152.4 cm [employer]ENT[employer] Sisi Garcíaler Work Phone: [facility] 05-15-2024 10:23-0400 Body mass index (BMI) [Ratio] 20.6 kg/m2 [employer]ENT[employer] Sisi Jha Work Phone: [facility] 05-15-2024 10:23-0400 Body temperature 98.4 [degF] [employer] Sisi Jha Work Phone: [facility] 05-15-2024 10:23-0400 Body weight 48 kg [employer] SCIENT[employer] Sisi Garcíaler Work Phone: [facility] 05-15-2024 10:23-0400 Diastolic blood pressure 78 mm[Hg] [employer] SCIENTIST Sisi Jha Work Phone: [facility] 05-15-2024 10:23-0400 Heart rate 76 /min [employer] SCIENT[employer] Sisi Jha Work Phone: [facility] 05-15-2024 10:23-0400 SaO2% (BldA) [Mass fraction] 99 % [employer]ENT[employer] Sisi Jha Work Phone: [facility] 05-15-2024 10:23-0400 Systolic blood pressure 120 mm[Hg] [employer] SCIENT[employer] Sisi Jha Work Phone: [facility] 03-09-2024 11:07-0400 Body height 152.4 cm [facility] 03-09-2024 11:07-0400 Body mass index (BMI) [Ratio] 21.1 kg/m2 [facility] 03-09-2024 11:07-0400 Body temperature 98 [degF] [facility] 03-09-2024 11:07-0400 Body weight 48.98 kg [facility] 03-09-2024 11:07-0400 Diastolic blood pressure 68 mm[Hg] [facility] 03-09-2024 11:07-0400 Heart rate 74 /min [facility] 03-09-2024 11:07-0400 SaO2% (BldA) [Mass fraction] 98 % [facility] 03-09-2024 11:07-0400 Systolic blood pressure 103 mm[Hg] [facility] 10-19-2021 19:00-0500 Body height 152.4 cm Hardik Wooten Other [employer] Other 10-19-2021 19:00-0500 Body mass index (BMI) [Ratio] 20.5 kg/m2 Hardik Wooten Other [employer] Other 10-19-2021 19:00-0500 Body temperature 97.9 [degF] Hardik Wooten Other [employer] Other 10-19-2021 19:00-0500 Body weight 47.63 kg Hardik Wooten Other [employer] Other 10-19-2021 19:00-0500 Respiratory rate 18 /min Hardik Wooten Other [employer] Other 10-19-2021 19:00-0500 SaO2% (BldA) [Mass fraction] 99 % Hardik Wooten Other [employer] Other Encounters Encounter Date Encounter Type Care Provider Facility Start: 09-05-2025 ambulatory GERMAN LEDESMA Facili ty:[facility] Start: 06-12-2025 End: 06-12-2025 Clinisync Result Encounter Ben Onelia DO Work Phone: [facility] Unsolicited Start: 06-12-2025 End: 06-12-2025 Clinisync Result Encounter Ben Onelia DO Work Phone: [facility] Unsolicited Start: 06-06-2025 End: 06-06-2025 Clinisync Result Encounter Ben Onelia DO Work Phone: [facility] Unsolicited Start: 06-06-2025 End: 06-06-2025 Clinisync Result Encounter Ben Onelia DO Work Phone: [facility] Unsolicited Start: 05-30-2025 End: 05-30-2025 Clinisync Result Encounter Ben Onelia DO Work Phone: [facility] Unsolicited Start: 05-30-2025 End: 05-30-2025 Clinisync Result Encounter Ben Onelia DO Work Phone: [facility] Unsolicited Start: 05-24-2025 End: 05-24-2025 Clinisync Result Encounter Ben Onelia DO Work Phone: [facility] Unsolicited Start: 05-24-2025 End: 05-24-2025 Clinisync Result Encounter Ben Onelia DO Work Phone: [facility] Unsolicited Start: 05-16-2025 End: 05-16-2025 Bamboo flowsheet Ben Onelia DO Work Phone: [facility] Start: 05-16-2025 End: 05-16-2025 Bamboo flowsheet Ben Onelia DO Work Phone: [facility] Start: 05-16-2025 End: 05-16-2025 Clinisync Result Encounter Ben Onelia DO Work Phone: [facility] Unsolicited Start: 05-16-2025 End: 05-16-2025 ambulatory BEN ONELIA Not Available Start: 05-16-2025 End: 05-16-2025 Office outpatient visit 15 minutes Ben Onelia DO Work Phone: [facility] Comment on above: Missed menses Start: 04-22-2025 End: 04-22-2025 Bamboo flowsheet Ben Onelia DO Work Phone: [facility] Start: 04-22-2025 End: 04-22-2025 Bamboo flowsheet Ben Onelia DO Work Phone: [facility] Start: 04-22-2025 End: 04-22-2025 ambulatory BEN ONELIA Not Available Start: 04-22-2025 End: 04-22-2025 Office outpatient visit 15 minutes Ben Onelia DO Work Phone: [facility] Comment on above: Missed menses Start: 01-22-2025 End: 01-27-2025 Clinisync Result Encounter Ben Onelia DO Work Phone: [facility] Unsolicited Start: 01-22-2025 End: 01-27-2025 Clinisync Result Encounter Ben Onelia DO Work Phone: [facility] Unsolicited Start: 01-22-2025 End: 01-22-2025 ambulatory BEN ONELIA Not Available Start: 01-22-2025 End: 01-22-2025 Patient encounter procedure Ben Onelia DO Work Phone: [facility] Work Phone: Start: 01-22-2025 End: 01-22-2025 Periodic preventive med est patient 18-39 yrs Ben Onelia DO Work Phone: [facility] Comment on above: Well woman exam with routine gynecological exam; Frequency of urination; Family history of breast cancer in mother Start: 11-13-2024 End: 11-13-2024 Office outpatient visit 25 minutes Licha Arguelles [employer] Work Phone: [facility] Comment on above: Acute cystitis with hematuria (Primary Dx); Vaginal discomfort Start: 11-13-2024 End: 11-13-2024 ambulatory LICHA A KIEPERT Not Available Start: 09-05-2024 End: 09-05-2024 Lab Drop off GERMAN A BALTAZAR [facility] Start: 09-05-2024 End: 09-05-2024 ambulatory GERMAN A BALTAZAR Facility[facility] Start: 09-03-2024 End: 09-03-2024 ambulatory GERMAN A BALTAZAR Facility:[facility] [place] [facility] Start: 05-22-2024 End: 05-22-2024 ambulatory GERMAN A BALTAZAR Facility:[facility] [place] [facility] Start: 05-15-2024 ambulatory GERMAN LEDESMA Facility :[facility] Start: 05-15-2024 End: 05-15-2024 ambulatory NON STAFF [facility] [place] Work Phone: Start: 05-15-2024 End: 05-15-2024 Patient encounter procedure [employer] SCIENT[employer] Sisi Jha Work Phone: Count Includes [facility] Work Phone: Start: 03-09-2024 End: 03-09-2024 ambulatory Sisi Jha Facility:[facility] Start: 03-09-2024 End: 03-09-2024 Departed Referred [employer] SCIENTIST Sisi Jha Work Phone: [facility] Start: 03-09-2024 End: 03-09-2024 ambulatory [facility] Work Phone: Start: 03-09-2024 End: 03-09-2024 Patient encounter procedure Count Includes [facility] Work Phone: Start: 10-30-2021 End: 10-30-2021 ambulatory Hardik Je Other [employer] Other Start: 10-30-2021 Telephone encounter Hardik Je [facility] Start: 10-19-2021 End: 10-19-2021 ambulatory Hardik Je Other [employer] Other Start: 10-19-2021 Office outpatient vi sit 15 minutes Hardik [place] [facility] [address] Start: 08-14-2020 End: 08-14-[address] EDGARD PERKINS Facility:[facility] Procedures Date Procedure Procedure Detail Performing Clinician Start: 06-12-2025 [facility] PREG QUANT HCG Core y Onelia DO Work Phone: Start: 06-06-2025 [facility] PREG QUANT HCG Core y Onelia DO Work Phone: Start: 05-30-2025 [facility] PREG QUANT HCG Core y Onelia DO Work Phone: Start: 05-24-2025 [facility] PREG QUANT HCG Core y Onelia DO Work Phone: Start: 05-16-2025 [facility] PREG QUANT HCG Core y Onelia DO Work Phone: Start: 04-22-2025 Urine test visual color cmprsn meths Ben Onelia DO Work Phone: Start: 01-22-2025 Urnls dip stick/tabl et rgnt non-auto w/o micrscp Ben Onelia DO Work Phone: Start: 01-22-2025 IGP,APTIMA HPV,AGE GDLN Ben Onelia DO Work Phone: Start: 11-13-2024 Urnls dip stick/tabl et rgnt auto w/o microscopy Licha Arguelles NP Work Phone: Start: 03-09-2024 Urine culture [employer] SCIENTIST Daniel Jha Work Phone: Start: 08-14-2020 Cystoscopy GERMAN SUSY WILLIAM Plan of Treatment Date Care Activity Detail Author Start: 01-30-2026 End: 01-30-2026 Patient encounter procedure [facility] Start: 07-01-2025 Influenza vaccination [facility] Start: 01-22-2025 End: 03-24-2026 MG Breast - bilateral Screening Bilateral screening mammogram Imaging Routine Family history of breast cancer in mother Expected: 01/22/2025 (Approximate), Expires: 03/24/2026 [facility] Comment on above: Expected: 01/22/2025 (Approximate), Expires: 03/24/2026 Start: 01-08-2025 End: 01-08-2025 Patient encounter procedure 01/08/2025 9:00 AM EDT Office Visit [facility] [address] [place] [address] Ben Rousseau, DO [address] [place] [address] [facility] Start: 07-01-2024 Influenza vaccination Influenza Vacc ine (#1) [facility] Start: 03-09-2024 Bacteria identified in Urine by Culture [facility] Cytology Cervical or vaginal smear or scraping study Pap Smear Pathology and Cytology Routine Well woman exam with routine gynecological exam Ordered: 01/22/2025 [facility] Work Phone: Comment on above: Ordered: 01/22/2025 hCG, quantitative hCG, quantitat maryann Lab Routine Missed menses Ordered: 04/22/2025 [facility] Work Phone: Comment on above: Ordered: 04/22/2025 hCG, quantitative hCG, quantitat maryann Lab Routine Missed menses Ordered: 05/16/2025 [facility] Work Phone: Comment on above: Ordered: 05/16/2025 URINARY TRACT INFECT ION (HTRX) URINARY TRACT INFECTION (HTRX) Lab Routine Vaginal discomfort Ordered: 11/13/2024 [facility] Work Phone: Comment on above: Ordered: 11/13/2024 Immunizations Immunization Date Immunization Notes Care Provider Shawna nascimento 06-13-2017 meningococcal ACWY vaccine, unspecified formulation GERMAN LEDESMA [facility] 01-04-2014 meningococcal ACWY vaccine, unspecified formulation GERMAN LEDESMA [facility] 03-14-2012 tetanus toxoid, redu hari diphtheria toxoid, and acellular pertussis vaccine, adsorbed GERMAN BALTAZAR [facility] 06-05-2005 measles, mumps and rubella virus vaccine GERMAN BALTAZAR [facility] 05-01-2001 hepatitis B vaccine, pediatric or pediatric/adolescent dosage GERMAN LEDESMA [facility] 05-01-2001 measles, mumps and rubella virus vaccine GERMAN BALTAZAR [facility] 01-17-2001 Hib, unspecified formulation GERMAN BALTAZAR [facility] 01-17-2001 varicella virus vaccine CURT LY BALTAZAR [facility] 10-03-2000 hepatitis B vaccine, pediatric or pediatric/adolescent dosage GERMAN BALTAZAR [facility] 07-07-2000 hepatitis B vaccine, pediatric or pediatric/adolescent dosage GERMAN BALTAZAR [facility] 07-07-2000 Hib, unspecified formulation GERMAN BALTAZAR [facility] 05-06-2000 Hib, unspecified formulation GERMAN BALTAZAR [facility] 02-29-2000 Hib, unspecified formulation GERMAN BALTAZAR [facility] Payers Date Payer Category Payer Unknown [id number] 2024 Unknown [id number] 2024 Medicaid [id number] 2024 Self-pay [id number] 2023 Private Health Insurance [id number] 2023 Unknown [id number] 1999 Unknown [id number] 2.16.84 [id number] 1999 Unknown [id number] 2.16.8 [id number] 1999 Unknown [id number] 2.16.8 [id number] 1999 Unknown [id number] 2.16.8 [id number] 1999 Unknown [id number] 2.16.8 [id number] 1999 Unknown [id number] 2.16.8 [id number] 1999 Unknown [id number] 2.16.8 [id number] 1999 Unknown [id number] 2.16.8 40.1.058882.3.579.2.1259 1999 Unknown [id number] 2.16.8 40.1.578440.3.579.2.1259 1999 Unknown [id number] 2.16.84 0.1.882634.3.579.2.1259 1999 Unknown [id number] 2.16.84 [id number] 1959 Unknown [id number] [facility] [id number] Unknown [facility] [id number] Unknown [id number] 2.16.8 [id number] Social History Date Type Detail Facility Unknown if ever smoked [employer] Other Start: 01-25-2024 End: 11-13-2024 Sex Assigned At [facility] Start: 12-02-2016 End: 01-25-2024 Tobacco smoking status NHIS Never smoked tobacco (finding) [facility] Start: 2000 Sex Assigned At Female [facility] Start: 01-25-2024 Tobacco use and exposure Smokeless tobacco non-user [facility] Start: 11-13-2024 End: 05-16-2025 Alcoholic beverage intake Lifetime non-drinker (finding) [facility] Start: 01-25-2024 End: 11-13-2024 History of Social function [facility] Start: 1999 Sex assigned at Not on file [facility] NEGATED: Highlighted rowStart: NINF History of tobacco use Passive smoker [facility] Clinical Notes 09-03-2024 to 05-16-2025 Lindsey Boo, WARPER FIXER - 05/16/2025 11:20 AM EDLaura Boo, WARPER FIXER - 04/22/2025 11:00 AM Chidi Brown, WARPER FIXER - 01/22/2025 10:40 AM Joo Arguelles, STEEL ROLLER - 11/13/2024 7:40 PM EST Note Date & Type Note Facility 05-16-2025 History of Present illness Narrative Reason for Appointment: Patient ID: Shiv Rios is a 24 y.o. female who presents for Amenorrhea Patient presents today for Consult appointment. MEDICATIONS No current outpatient medications ALLERGIES Allergies Allergen Reactions Ibuprofen Itching Other Reaction(s): Swelling PROBLEMS Active Ambulatory Problems Diagnosis Date Noted Body mass index (BMI) of 19.0-19.9 in adult 11/13/2024 Dysuria 11/13/2024 Frequency of urination 11/13/2024 Incomplete bladder emptying 11/13/2024 Mixed incontinence 11/13/2024 Nonsmoker 11/13/2024 Resolved Ambulatory Problems Diagnosis Date Noted No Resolved Ambulatory Problems Past Medical History: Diagnosis Date in first trimester HISTORY PAST MEDICAL HISTORY SOCIAL HISTORY Past Medical History: Diagnosis Date in first trimester Social History Tobacco Use Smoking status: Never Passive exposure: Never Smokeless tobacco: Never Substance Use Topics Alcohol use: Never Drug use: Never FAMILY HISTORY Family History Problem Relation Name Age of Onset Breast cancer Mother Other (high blood pressure) Mother Lymphoma Maternal Grandfather Diabetes Maternal Grandfather Other (high blood pressure) Maternal Grandfather SURGICAL HISTORY Past Surgical History: Procedure Laterality Date CYSTOSCOPY 07/2020 REVIEW OF SYSTEMS Review of Systems: Review of Systems Constitutional: Negative. HENT: Negative. Eyes: Negative. Respiratory: Negative. Cardiovascular: Negative. Gastrointestinal: Negative. Genitourinary: Negative. Musculoskeletal: Negative. Skin: Negative. Neurological: Negative. All other systems reviewed and are negative. Hematological: Negative. Endocrine: Negative. Allergic/Immunologic: Negative. OBJECTIVE Objective: Physical Exam Constitutional: Appearance: Normal appearance. She is well-developed. Cardiovascular: Rate and Rhythm: Normal rate and regular rhythm. Pulmonary: Effort: Pulmonary effort is normal. Breath sounds: Normal breath sounds. Abdominal: General: Bowel sounds are normal. There is no distension. Palpations: Abdomen is soft. Tenderness: There is no abdominal tenderness. There is no guarding or rebound. Musculoskeletal: General: No swelling. Normal range of motion. Right lower leg: No edema. Left lower leg: No edema. Neurological: Mental Status: She is alert and oriented to person, place, and time. Skin: General: Skin is warm and dry. Psychiatric: Mood and Affect: Mood normal. Behavior: Behavior normal. Vitals and nursing note reviewed. Exam conducted with a culinary instructor present. Vitals: Estimated body mass index is 21.5 kg/m as calculated from the following: Height as of 10/03/20: 5' 1 . Weight as of this encounter: 113 lb 12.8 oz. BP: 100/62 No LMP recorded. ASSESSMENT & PLAN ICD-10-CM 1. Missed menses N92.6 Patient presents for follow up IAB with oral medication, patient given lab slip to have drawn to follow levels below 5. Patient is doing well emotionally and physically. Patient to have labs drawn today since UPT was faint positive today in office. Patient to return to clinic as needed and for annual appointment. Patient had LMP on 05/12/25. Discussed forms of control and what patient is comfortable with being on as she is regular without control for the past 6 years. Discussed Slynd, Nexplanon or ParaGard and patient will think about what she would like to do for prevention and will reach back out to office if she desires to start on medication. Pamphlets given for all options. Patient at this time does not desire IUD, so Slynd pamphlet will be given to patient. Documented by Lindsey Boo LPN on behalf of: Ben Rousseau DO documented in this encounter [facility] 04-22-2025 History of Present illness Narrative Reason for Appointment: Patient ID: Shiv Rios is a 24 y.o. female who presents for Amenorrhea Patient presents today for Consult appointment. MEDICATIONS No current outpatient medications ALLERGIES Allergies Allergen Reactions Ibuprofen Itching Other Reaction(s): Swelling PROBLEMS Active Ambulatory Problems Diagnosis Date Noted Body mass index (BMI) of 19.0-19.9 in adult 11/13/2024 Dysuria 11/13/2024 Frequency of urination 11/13/2024 Incomplete bladder emptying 11/13/2024 Mixed incontinence 11/13/2024 Nonsmoker 11/13/2024 Resolved Ambulatory Problems Diagnosis Date Noted No Resolved Ambulatory Problems No Additional Past Medical History HISTORY PAST MEDICAL HISTORY SOCIAL HISTORY History reviewed. No pertinent past medical history. Social History Tobacco Use Smoking status: Never Passive exposure: Never Smokeless tobacco: Never Substance Use Topics Alcohol use: Never Drug use: Never FAMILY HISTORY Family History Problem Relation Name Age of Onset Breast cancer Mother Other (high blood pressure) Mother Lymphoma Maternal Grandfather Diabetes Maternal Grandfather Other (high blood pressure) Maternal Grandfather SURGICAL HISTORY Past Surgical History: Procedure Laterality Date CYSTOSCOPY 07/2020 REVIEW OF SYSTEMS Review of Systems: Review of Systems Constitutional: Negative. HENT: Negative. Eyes: Negative. Respiratory: Negative. Cardiovascular: Negative. Gastrointestinal: Negative. Genitourinary: Negative. Musculoskeletal: Negative. Skin: Negative. Neurological: Negative. All other systems reviewed and are negative. Hematological: Negative. Endocrine: Negative. Allergic/Immunologic: Negative. OBJECTIVE Objective: Physical Exam Constitutional: Appearance: Normal appearance. She is well-developed. Cardiovascular: Rate and Rhythm: Normal rate and regular rhythm. Pulmonary: Effort: Pulmonary effort is normal. Breath sounds: Normal breath sounds. Abdominal: General: Bowel sounds are normal. There is no distension. Palpations: Abdomen is soft. Tenderness: There is no abdominal tenderness. There is no guarding or rebound. Musculoskeletal: General: No swelling. Normal range of motion. Right lower leg: No edema. Left lower leg: No edema. Neurological: Mental Status: She is alert and oriented to person, place, and time. Skin: General: Skin is warm and dry. Psychiatric: Mood and Affect: Mood normal. Behavior: Behavior normal. Vitals and nursing note reviewed. Exam conducted with a culinary instructor present. Vitals: Estimated body mass index is 21.69 kg/m as calculated from the following: Height as of 10/03/20: 5' 1 . Weight as of this encounter: 114 lb 12.8 oz. BP: 118/76 No LMP recorded. ASSESSMENT & PLAN ICD-10-CM 1. Missed menses N92.6 POCT , urine manually resulted Patient presents for discussion of positive . Patient desires to have terminated and will reach out to clinic in [place] as our office does not deal with termination of pregnancies. Patient given HCG lab incase she has to have proof other than positive UPT in office. Patient to reach out to office with any concerns/questions and for routine annual appointment. Documented by Lindsey Boo LPN on behalf of: Ben Rousseau DO documented in this encounter [facility] 01-22-2025 History of Present illness Narrative Reason for Appointment: Patient ID: Shiv Rios is a 24 y.o. female who presents for Well Women Visit Patient presents today for Annual Exam. MEDICATIONS Current Outpatient Medications Medication Instructions ergocalciferol (Vitamin D-2) 50 MCG (1999) capsule 1 capsule, Daily ALLERGIES Allergies Allergen Reactions Ibuprofen Itching PROBLEMS Active Ambulatory Problems Diagnosis Date Noted Body mass index (BMI) of 19.0-19.9 in adult 11/13/2024 Dysuria 11/13/2024 Frequency of urination 11/13/2024 Incomplete bladder emptying 11/13/2024 Mixed incontinence 11/13/2024 Nonsmoker 11/13/2024 Resolved Ambulatory Problems Diagnosis Date Noted No Resolved Ambulatory Problems No Additional Past Medical History HISTORY PAST MEDICAL HISTORY SOCIAL HISTORY History reviewed. No pertinent past medical history. Social History Tobacco Use Smoking status: Never Passive exposure: Never Smokeless tobacco: Never Substance Use Topics Alcohol use: Never Drug use: Never FAMILY HISTORY Family History Problem Relation Name Age of Onset Breast cancer Mother Other (high blood pressure) Mother Lymphoma Maternal Grandfather Diabetes Maternal Grandfather Other (high blood pressure) Maternal Grandfather SURGICAL HISTORY Past Surgical History: Procedure Laterality Date CYSTOSCOPY 07/2020 REVIEW OF SYSTEMS Review of Systems: Review of Systems Constitutional: Negative. HENT: Negative. Eyes: Negative. Respiratory: Negative. Cardiovascular: Negative. Gastrointestinal: Negative. Genitourinary: Positive for dysuria and frequency. Musculoskeletal: Negative. Skin: Negative. Neurological: Negative. All other systems reviewed and are negative. Hematological: Negative. Endocrine: Negative. Allergic/Immunologic: Negative. OBJECTIVE Objective: Physical Exam Constitutional: Appearance: Normal appearance. She is well-developed. Genitourinary: Vulva normal. Breasts: Breasts are soft. Right: Normal. Left: Normal. Cardiovascular: Rate and Rhythm: Normal rate and regular rhythm. Pulmonary: Effort: Pulmonary effort is normal. Breath sounds: Normal breath sounds. Abdominal: General: Bowel sounds are normal. There is no distension. Palpations: Abdomen is soft. Tenderness: There is no abdominal tenderness. There is no guarding or rebound. Musculoskeletal: General: No swelling. Normal range of motion. Right lower leg: No edema. Left lower leg: No edema. Neurological: Mental Status: She is alert and oriented to person, place, and time. Skin: General: Skin is warm and dry. Psychiatric: Mood and Affect: Mood normal. Behavior: Behavior normal. Vitals and nursing note reviewed. Exam conducted with a culinary instructor present. Vitals: Estimated body mass index is 21.69 kg/m as calculated from the following: Height as of 20: 5' 1 . Weight as of this encounter: 114 lb 12.8 oz. BP: 120/70 Patient's last menstrual period was 01/12/2025. ASSESSMENT & PLAN ICD-10-CM 1. Well woman exam with routine gynecological exam Z01.419 Pap Smear POCT urinalysis dipstick manually resulted POCT , urine manually resulted Annual Exam: Patient presents today for an annual exam. Patient states she is doing well and has no complaints. Pap was obtained without difficulty. Pt had cystoscopy and urethral dilation. Pt mother had breast cancer in 2013. Was concerned with when she needs to get a mammogram. Discussed dr daigle. Pt to be referred to Dr Daigle for review of familial history of breast cancer. Orders Placed This Encounter Procedures POCT urinalysis dipstick manually resulted POCT , urine manually resulted Follow Up: Patient is to return in one year for annual unless needed otherwise. Documented by Lian Brown LPN on behalf of: Ben Rousseau DO documented in this encounter [facility] 11-13-2024 History of Present illness Narrative Images from the original note were not included. [address], [address] [facility], [address] P: [phone] F: [phone] HPI Historian of HPI: patient Shiv Rios is a 23 y.o. female who presents today to the Urgent Care with the following complaints and denials which have been present for 3 day(s) C/O Denies Symptom Comments [] [x] Dysuria [] [x] hematuria [x] [] Urinary frequency [] [x] Urinary incontinence [x] [] Urinary urgency [x] [] Genital itching Started today [] [x] Genital discharge [] [x] Back pain [] [x] Abd pain Additional Comments: pt has not taken any OTC medications Pt stated she is very tender when she wipes. Pt stated she doesn't think she has a UTI, maybe a yeast infection. IH Testing: An In-House UA has been obtained ROS A complete system ROS was performed and negative aside from the pertinent positives noted in the HPI and PE. PHYSICAL EXAM Gen: well nourished, no acute distress, interactive Head: normocephalic, atraumatic HEENT: TMs pearly guzman, tongue midline, mucous membranes moist Lungs: CTAB, respiratory effort normal Heart: RRR without murmur, rub, gallop Abdomen: BS x 4, soft, no palpable mass, no tenderness Extremities: warm to touch, capillary refill x 3 seconds Neuro: alert, oriented, moving all extremities Psych: cooperative, appropriately interactive TREATMENT PLAN 1. Vaginal discomfort Results discussed - URINALYSIS ANALYZER TEST - URINARY TRACT INFECTION (HTRX) 2. Acute cystitis with hematuria (Primary) Diagnosis and testing results discussed Push fluids, rest, good handwashing, avoid tub baths and jacuzzis To ER for any worsening of symptoms Follow up with pcp in 3-5 days for recheck of symptoms Call office in 2-3 days for culture results - nitrofurantoin, macrocrystal-monohydrate, (Macrobid) 100 MG capsule; Take 1 capsule (100 mg) by mouth in the morning and 1 capsule (100 mg) before bedtime. Do all this for 7 days. Dispense: 14 capsule; Refill: 0 documented in this encounter [facility] 09-05-2024 Note Nurse Consultation N ote Reason for Visit Here for lab draw Assessment/Plan Wellness examination (Z00.00: Encounter for general adult medical examination without abnormal findings) Medications No active medications Allergies Milk Products (Cramping) ibuprofen (Swelling) Immunizations Vaccine Date Status meningococcal conjugate vaccine 06/13/2017 Recorded meningococcal conjugate vaccine 01/04/2014 Recorded diphtheria/pertussis, acel/tetanus adult 03/14/2012 Recorded measles/mumps/rubella virus vaccine 06/05/2005 Recorded measles/mumps/rubella virus vaccine 05/01/2001 Recorded hepatitis B pediatric vaccine 05/01/2001 Recorded varicella virus vaccine 01/17/2001 Recorded Hib, unspecified formulation 01/17/2001 Recorded hepatitis B pediatric vaccine 10/03/2000 Recorded hepatitis B pediatric vaccine 07/07/2000 Recorded Hib, unspecified formulation 07/07/2000 Recorded Hib, unspecified formulation 05/06/2000 Recorded Hib, unspecified formulation 02/29/2000 Recorded [facility] 09-03-2024 Note Patient Education Obstetrics and Gynecology Health Maintenance, Female Adopting a healthy lifestyle and getting preventive care are important in promoting health and wellness. Ask your health care provider about: ??? The right schedule for you to have regular tests and exams. ??? Things you can do on your own to prevent diseases and keep yourself healthy. What should I know about diet, weight, and exercise? Eat a healthy diet ??? Eat a diet that includes plenty of vegetables, fruits, low-fat dairy products, and lean protein. ??? Do not eat a lot of foods that are high in solid fats, added sugars, or sodium. Maintain a healthy weight Body mass index (BMI) is used to identify weight problems. It estimates body fat based on height and weight. Your health care provider can help determine your BMI and help you achieve or maintain a healthy weight. Get regular exercise Get regular exercise. This is one of the most important things you can do for your health. Most adults should: ??? Exercise for at least 150 minutes each week. The exercise should increase your heart rate and make you sweat (moderate-intensity exercise). ??? Do strengthening exercises at least twice a week. This is in addition to the moderate-intensity exercise. ??? Spend less time sitting. Even light physical activity can be beneficial. Watch cholesterol and blood lipids Have your blood tested for lipids and cholesterol at 20 years of age, then have this test every 5 years. Have your cholesterol levels checked more often if: ??? Your lipid or cholesterol levels are high. ??? You are older than 40 years of age. ??? You are at high risk for heart disease. What should I know about cancer screening? Depending on your health history and family history, you may need to have cancer screening at various ages. This may include screening for: ??? Breast cancer. ??? Cervical cancer. ??? Colorectal cancer. ??? Skin cancer. ??? Lung cancer. What should I know about heart disease, diabetes, and high blood pressure? Blood pressure and heart disease ??? High blood pressure causes heart disease and increases the risk of stroke. This is more likely to develop in people who have high blood pressure readings or are overweight. ??? Have your blood pressure checked: ? Every 3?5 years if you are 18?39 years of age. ? Every year if you are 40 years old or older. Diabetes Have regular diabetes screenings. This checks your fasting blood sugar level. Have the screening done: ??? Once every three years after age 40 if you are at a normal weight and have a low risk for diabetes. ??? More often and at a younger age if you are overweight or have a high risk for diabetes. What should I know about preventing infection? Hepatitis B If you have a higher risk for hepatitis B, you should be screened for this virus. Talk with your health care provider to find out if you are at risk for hepatitis B infection. Hepatitis C Testing is recommended for: ??? Everyone born from 1945 through 1965. ??? Anyone with known risk factors for hepatitis C. Sexually transmitted infections (STIs) ??? Get screened for STIs, including gonorrhea and chlamydia, if: ? You are sexually active and are younger than 24 years of age. ? You are older than 24 years of age and your health care provider tells you that you are at risk for this type of infection. ? Your sexual activity has changed since you were last screened, and you are at increased risk for chlamydia or gonorrhea. Ask your health care provider if you are at risk. ??? Ask your health care provider about whether you are at high risk for HIV. Your health care provider may recommend a prescription medicine to help prevent HIV infection. If you choose to take medicine to prevent HIV, you should first get tested for HIV. You should then be tested every 3 months for as long as you are taking the medicine. ??? If you are about to stop having your period (premenopausal) and you may become , seek counseling before you get . ??? Take 400 to 800 micrograms (mcg) of folic acid every day if you become . ??? Ask for control (contraception) if you want to prevent . Osteoporosis and menopause Osteoporosis is a disease in which the bones lose minerals and strength with aging. This can result in bone fractures. If you are 65 years old or older, or if you are at risk for osteoporosis and fractures, ask your health care provider if you should: ??? Be screened for bone loss. ??? Take a calcium or vitamin D supplement to lower your risk of fractures. ??? Be given hormone replacement therapy (HRT) to treat symptoms of menopause. Follow these instructions at home: Alcohol use ??? Do not drink alcohol if: ? Your health care provider tells you not to drink. ? You are , may be , or are planning to become . ??? If you drink alcohol: ? (more content not included)... [facility] Evaluation + Plan note Future Appointments Appointment Date:09/05/2025 09:00:00 AM Scheduled Provider:GERMAN LEDESMA CNP Location:[facility] Appointment Type:[facility] Evaluation note [facility] Other Evaluation note No Information [facility] Other Evaluation note No assessment inform ation [facility] Work Phone: Evaluation note Diagnosis Acute cystitis with hematuria- Primary Vaginal discomfort [facility] Diagnosis Well woman exam with routine gynecological exam Routine gynecological examination Frequency of urination Urinary frequency Family history of breast cancer in mother Family history of malignant neoplasm of breast [facility] Diagnosis Missed menses documented [facility] History general Narrative - Reported* Type Description Date Hospitalization History muscle- pulled hip [facility] Other Hospital course Narrative No data available for this section [facility] Discharge instructions No data available for this section [facility] Progress note No data available for this section [facility] Summary Purpose Family History No Family History Records FoundNo Family History Records Found No data available for this section No Family History Records FoundNo Family History Records FoundNo Family History Records FoundNo Family History Records FoundNo Family History Records FoundNo Family History Records FoundNo Family History Records FoundNo Family History Records FoundNo Family History Records Found Advance Directives Advance Directive Response Recorded Date/ Time Advance Directives No December 12:39pm Chief Complaint and Reason for Visit Chief Complaint Possible UTI Chief Complaint Possible UTI Dysuria Chief Complaint Possible UTI Dysuria FATIGUE, NAUSEA Additional Source Comments INFORMATION SOURCE (unrecogn ized section and content) DATE CREATED AUTHOR 07/28/2022 [facility] DATE CREATED AUTHOR AUTHOR'S ORGANIZ ATION 03/28/2024 [facility] DATE CREATED AUTHOR AUTHOR'S ORGANIZ ATION 09/07/2024 [employer] [facility] DATE CREATED AUTHOR AUTHOR'S ORGANIZ ATION 09/15/2024 Haywood Dunn [facility] DATE CREATED AUTHOR AUTHOR'S ORGANIZ ATION 02/26/2025 Haywood Nikunj [facility] DATE CREATED AUTHOR AUTHOR'S ORGANIZ ATION 05/20/2025 [facility] [employer] Care Teams (unrecognized sec tion and content) Team Status: Active Member Role Status Dates PHYSICIAN NO FAMILY Primary Care Provider Active Team Status: Inactive Member Role Status Dates PHYSICIAN NO FAMILY Primary Care Provider Active Start: March 09, 2024 End: March 09, 2024 Sisi Jha APRN Attending Provider Active Start: March 09, 2024 End: March 09, 2024 Team Status: Inactive Member Role Status Dates Sisi Jha APRN Attending Provider Active Start: March 09, 2024 End: March 09, 2024 Team Status: Active Member Role Status Dates NON STAFF Primary Care Provider Active Team Status: Inactive Member Role Status Dates Sisi Jha APRN Attending Provider Active Start: March 09, 2024 End: March 09, 2024 NON STAFF Primary Care Provider Active Start: March 09, 2024 End: March 09, 2024 Team Status: Inactive Member Role Status Dates NON STAFF Primary Care Provider Active Start: May 15, 2024 End: May 15, 2024 Sisi Jha APRN Attending Provider Active Start: May 15, 2024 End: May 15, 2024 Marketing Operations Associate Relationship Specialty Start Date End Date Philip Francis DO [address] [facility] [address] [place] [address] PCP - Medical [employer] 08/31/23 99 Marketing Operations Associate Relationship Specialty Start Date End Date Philip Francis DO [address] [facility] [address] [place] [address] PCP - [facility] [employer] 08/31/23 99 Marketing Operations Associate Relationship Specialty Start Date End Date Philip Francis DO [address] [facility] [address] [place] [address] PCP - [facility] [employer] 08/31/23 99 Marketing Operations Associate Relationship Specialty Start Date End Date Philip Francis DO [address] [place] [address] PCP - [facility] [employer] 08/31/23 99 Goals (unrecognized section and content) Goals may be documented in a n alternate section Reason for Visit (unrecogniz ed section and content) Reason Comments Amenorrhea Reason Comments Well Women Visit FOR RECORDS PERTAINING TO PATIENTS WHO ARE OR HAVE BEEN ENROLLED IN A CHEMICAL DEPENDENCY/SUBSTANCEABUSE PROGRAM, SOME INFORMATION MAY BE OMITTED. This clinical summary was aggregated from multiple sources. Caution should be exercised in using it in the provision of clinical care. This summary normalizes information from multiple sources, and as a consequence, information in this document may materially change the coding, format and clinical context of patient data. In addition, data may be omitted in some cases. CLINICAL DECISIONS SHOULD BE BASED ON THE PRIMARY CLINICAL RECORDS. [facility]. provides no warranty or guarantee of the accuracy or completeness of information in this document.
--- NOTE | 2025-08-13 10:00 | MM_ITS ---
Patient Name: SHIV HARRISON MR#: [id number] : 2000 Exam Date: 08/13/2025 Ordering Doctor: DR BEN VAUGHN . RADIOLOGY REPORT PROCEDURE: MM TOMOSYNTHESIS SCREENING BI COMPARISON: None. INDICATIONS: family history of breast cancer in mother Calculator Name NCI Breast Cancer Risk Assessment Tool 5 Year Breast Cancer Risk Not Applicable. Lifetime Breast Cancer Risk Not Applicable. Personal Breast Cancer No Personal Ovarian Cancer No Treatments None Family Cancers Mother with breast cancer at age 35; Grandfather-maternal with lymphatic cancer at age 68. LOCATION: [facility] BREAST COMPOSITION: The breasts are heterogeneously dense, which may obscure small masses. FINDINGS: DIAGNOSTIC CATEGORY 1--NEGATIVE. RIGHT BREAST: No significant suspicious finding. LEFT BREAST: No significant suspicious finding. RECOMMENDATIONS: ROUTINE MAMMOGRAM AND CLINICAL EVALUATION IN 12 MONTHS. Dictated by: Stephen Thompson DO on 08/13/2025 at 15:36 Approved by: Stephen Thompson DO on 08/13/2025 at 15:38
== END 2025-08-13 09:35 | disposition home or self-care (01) ==
LOC: MAMMO 09:34
PROVIDERS: Family Provider Urology; Visit Provider Obstetrics & Gynecology
DX: Z12.31 Encounter for screening mammogram for malignant neoplasm of breast (principal); Z80.3 Family history of malignant neoplasm of breast; Z80.7 Family history of other malignant neoplasms of lymphoid, hematopoietic and related tissues
CPT/HCPCS: 77063; 77067

== ENCOUNTER 2025-10-02 11:02 | Outpatient (OUT) | payer OTHER, SELFPAY ==
--- OUTSIDE RECORDS SUMMARY | 2023-11-11 03:30 | XMS_ITS | Continuity of Care Document ---
Author Organization [facility] Address [address] [place] [address] Phone Care Team Providers Care Civil Engineering Professional Name Role Phone Betty Carrera DDS Unavailable Unavailable Allergies, Adverse Reactions, Alerts Substance Reaction Status Criticality No Known Allergies Active No Inform ation Procedures Procedure Date Panoramic Film Bitewings Four Films Oral Hygiene Instruction Comp Oral Eval New/estab Patient 2023 Advance Directives Directive Yes / No Effective Date File Name No Information Encounters Encounter Description Practice Location Reason(s) For Visit Diagnoses Date Provider Providers Copied on Encounter [facility], [address] [place] [address], [id number], tel:[phone] Dental Clinic dn (chief complaint) Encounter for screening for dental disordersBody mass index [BMI] 21.0-21.9, adult Deandre HERNANDEZ Betty. . tel:[phone] Family History Family Member Type Diagnosis Age At Onset No Information Payers Payer name Insurance type Covered constitution party ID Mickey painter(s) D Hum[employer] Medicaid Dentaquest [facility] [id number] D Medicaid ap - [facility] [id number] Social History Type Description Quantity Date Captured Comments Alcohol Use Details Unknown Caffeine Use Details Unknown Tobacco Use Status No Information Smoking Status No Information Sex Female Sexual Orientation Straight or heterosexual Gender Identity Female Vital Signs Date / Time: Height Weight BMI Pulse Rate Blood Pressure Temperature Respiratory Rate Body Surface Area Head Circumference Head Circ. Percentile Wt./Yasmany. Percentile BMI percentile Pulse Ox Inhaled Ox 9:03 AM 60.00 in 49.895 kg (110.00 lbs) 21.4 8 kg/m eter (2) 77 /min 112/78 mm[Hg] 97.80 F 1.45 meter(2) Chief Complaint And Reason For Visit From encounter dated '11/11/2023 08:30'. dn (chief complaint). Description: dn Reason For Referral Reason For Referral No Information Plan Of Treatment Date Type Action Status Goal Unhealthy drug use screening . Due on due Goal Influenza vaccine. Due on due Goal Depression screening. Due on due Goal PAP. Due on due Goal Hep A. Due on du e Goal Tdap. Due on due Goal Tdap Vaccine. Due on 2023 due Goal RLP. Due on due Goal Hepatitis C screening. Due o n due Goal PRAPARE ASSESSMENT. Due on due Goal Dietary management education , guidance, and counseling completed History Of Present Illness Encounter Date Complaint History Of Prese nt Illness dn dn Functional Status Date Functional Assessmen t No Information Instructions Date Instruction Additional Infor mation Giving encouragement to exercise Related to Body mass index [BMI] 21.0-21.9, adult Dietary management e ducation, guidance, and counseling Related to Body mass index [BMI] 21.0-21.9, adult Assessments Type Assessment Date assessment Encounter for screening for dent al disorders assessment Body mass index [BMI] 21.0-21.9, adult Patient Care Teams Name Effective Dates (start - stop) Status Members No Information
--- OUTSIDE RECORDS SUMMARY | 2025-10-02 11:07 | XMS_ITS | Clinical Summary ---
Author Organization [facility] Address [address] [place] [address] Care Team Providers Care Medicare Interviewer Name Role Phone Philip Francis DO Unavailable [phone] Allergies Active AllergyReactionsCriticalityNoted OrreOvfofofkSmkkwdjixQlfpoop83/27/2024 Other Reaction(s): Swelling Medications MedicationSigDispense QuantityRefillsLast FilledStart DateEnd DateStatus terconazole (Terazol 7) 0.4 % vaginal cream Indications:Yeast infectionInsert 1 applicator into the vagina at bedtime for 7 days 45 g Expired Active Problems ProblemNoted DateDiagnosed DateBody mass index (BMI) of 19.0-19.9 in adult 11/13/20242826Smavxvg83/14/2025Frequency of rfwlqlqia33/14/2025Incomplete bladder gdixqncd06/14/2025Mixed iqgexhspdzhl25/14/6581Biwgsdspc93/14/2025 Encounters DateTypeDepartmentCare CrthBsuewwdurse09/31/2025Telephone [facility] [address] [place] [address] Radha Valero MA 08/29/2025[facility]phone [facility] [address] [place] [address] Radha Valero MA 08/29/2025Telephone [facility] [address] [place] [address] Radha Valero MA 07/05/2025Telephone [facility] [address] [place] [address] Bridgett Carlson MA from Last 3 Months Family History Medical HistoryRelationNameCommentsDiabetesMaternal GrandfatherLymphomaMaternal Grandfatherhigh blood pressureMaternal GrandfatherBreast cancerMotherhigh blood pressureMotherRelationNameStatusCommentsMaternal GrandfatherMother Social History Tobacco UseTypesPacks/DayYears UsedDateSmoking Tobacco: NeverPassive Smoke Exposure: NeverSmokeless Tobacco: Never Tobacco Cessation:Counseling Given: Not Answered Alcohol UseStandard Drinks/WeekCommentsNever0 (1 standard drink = 0.6 oz pure alcohol)CommentsNoSex and Gender InformationValueDate RecordedSex Assigned at BirthNot on fileLegal UujGpagbc41/15/2023 10:11 PM EDTGender IdentityNot on fileSexual OrientationNot on file Last Filed Vital Signs Vital SignReadingTime TakenCommentsBlood Vtntwwyo967/6207 11:49 AM EDT Aoozy713511/13/2024 7:47 PM HXOTxervodqcff20.2 ??C (97.2 ??F)11/13/2024 7:47 PM ESTRespiratory Rate--Oxygen Zozkhtbgdr54%11/13/2024 7:47 PM ESTInhaled Oxygen Concentration--Jdqjpd87.6 kg (113 lb 12.8 oz)05/16/2025 11:49 AM LSLBqohug275.9 cm (5' 1 )10/03/2020 12:00 PM ESTBody Mass Index21. 12:00 PM EST Plan of Treatment DateTypeDepartmentCare Team (Latest Contact Info)Rrpodhcpqus12/02/2026 11:00 AM EDTOffice Visit [facility] [address] [place] [address] Efrem Rousseau DO [address] [place], [place] [id number] Health MaintenanceDue DateLast DoneCommentsCOVID-19 Vaccine (1 - 2025- season) 2025Influenza Vaccine (#1)2025Pneumococcal Vaccine: Pediatrics (0 to 5 Years) and At-Risk Patients (6 to 64 Years)Aged OutNo longer eligible based on patient's age to complete this topic Insurance Care Teams Team MemberRelationshipSpecialtyStart DateEnd Date Philip Francis DO [address] [place] [address] PCP - [facility] [place] Djaqizuvcw11/1/
--- OUTSIDE RECORDS SUMMARY | 2025-10-02 11:11 | XMS_ITS | CCD ---
Author Organization [facility] Inform ion Partnership [facility] Care Team Providers Care Network Support Name Role Phone Hardik Wooten Unavailable DR EDGARD PERKINS Primary Care Unavailable CARLOS, DR SHAH Admitting Unavailable CARLOS, DR SHAH Consulting Unavailable CARLOS, DR SHAH Attending Unavailable JAILYN ROWLEY Consulting Unavailable CHARLEEN Jha Attending Provider Sisi Jha Attending Unavailable Sisi Jha Admitting Unavailable NON STAFF Primary Care Unavailable NON STAFF Primary Care Provider UnavailGERMAN May Primary Care Physician Philip Francis DO Unavailable Philip Francis DO Unavailable BEN ROUSSEAU Attending Unavailable BEN ROUSSEAU Attending Unavailable LICHA ARGUELLES Attending Unavailable BEN ROUSSEAU Attending Unavailable Juan Irvin Attending Unavailable Juan Irvin Attending Unavailable Allergies Allergy ClassificationReported Allergen(s)Allergy TypeDate of OnsetReaction(s) Facility (20 sources)Ibuprofen; Translations: [ibuprofen]Drug Ozhdbxa86-85-9084Dgzgglmn (morphologic abnormality), ItchingExec[facility] (1 source)IbuprofenDrug AllergyThe [facility] (1 source)MilkDrug allergy (disorder)[facility] (1 source)IbuprofenDrug Oumrntp69-44-4658ItqrzpcapOhio [facility] (3 sources)Milk Products; Translations: [Milk Products]Food allergyCramping sensation quality (qualifier value)[facility] Medications Current Medications MedicationDrug Class(es)DatesSig (Normalized)Sig (Original)ergocalciferol 0.05 mg oral capsule (8 sources)Provitamin D2 CompoundStart: 09-07-2024 End: 37-08-7692ffbw 1 capsule by mouth once dailyergocalciferol (Vitamin D-2) 50 MCG (1999) capsule Take 1 capsule by mouth Daily 09/07/2024 04/22/2025 Discontinued (Other)fluconazole 150 mg oral tablet (2 sources)Azole AntifungalStart: 51-45-7870wmioprarsakfmb, macrocrystals 25 mg / nitrofurantoin, monohydrate 75 mg oral capsule (8 sources)Nitrofuran AntibacterialStart: 01-22-2025 End: 97-57-7932pkct 1 capsule by mouth in the morningnitrofurantoin, macrocrystal-monohydrate, (Macrobid) 100 MG capsule Indications: Frequency of urination Take 1 capsule (100 mg) by mouth in the morning and 1 capsule (100 mg) before bedtime. Do all this for 7 days. 14 capsule 01/22/2025 01/29/2025 Active Start: 11-13-2024 End: 11-01-1664spbx 1 capsule by mouth in the morningnitrofurantoin, macrocrystal-monohydrate, (Macrobid) 100 MG capsule Indications: Acute cystitis with hematuria Take 1 capsule (100 mg) by mouth in the morning and 1 capsule (100 mg) before bedtime. Do all this for 7 days. 14 capsule 11/13/2024 11/20/2024 ActiveStart: 03-09-2024 End: 07-91-7770pkcu 1 capsule by mouth every twelve hours at mealtime Nitrofurantoin Monohyd/M-Cryst (Macrobid) 100 mg capsule Discontinued 100 MG PO Every 12 hours 14 7May 2023 12:00am May 15, 2024 10:23am must administer with a meal/foodondansetron 4 mg disintegrating oral tablet (1 source)Serotonin-3 Receptor AntagonistStart: 56-34-3730cuox 4 mg by mouth every six hoursOndansetron Active 4 MG PO Q6H 20 May 15, 2024 12:00am sulfamethoxazole 800 mg / trimethoprim 160 mg oral tablet (2 sources)Dihydrofolate Reductase Inhibitor Antibacterial, Sulfonamide AntimicrobialStart: 19-03-8196juts 1 tablet by mouth every twelve hoursStart: 77-85-3234resw 1 tablet by mouth every twelve hoursBactrim DS 800-160 MG 1 tablet Orally Twice a day for 7 day(s) Sep, Active Completed/Discontinued Medications MedicationDrug Class(es)DatesSig (Normalized)Sig (Original)phenazopyridine hydrochloride 200 mg oral tablet (3 sources)Start: 03-09-2024 End: 56-25-4790rfge 1 tablet by mouth three times dailyPhenazopyridine (Pyridium) 200 mg tablet Discontinued 200 MG PO Three times daily 6 March 09, 2024 12:00am May 15, 2024 10:23am Problems Active Problems Problem ClassificationProblemDateDocumented DateEpisodic/ChronicGenitourinary symptoms and ill-defined conditions (18 sources)Mixed incontinence; Translations: [Incontinence]Onset: 08-18-2020 89-28-5425BnxgzydHwlpojtzl disorders (4 sources)Missed period; Translations: [Irregular menstruation, unspecified] 66-63-7435ImqljxrYaavv female genital disorders (2 sources)Vaginal discomfort; Translations: [Unspecified condition associated with female genital organs and menstrual cycle]56-59-4900BgkrfxzhXzukopwb codes; unclassified (2 sources)Family history of malignant neoplasm of breast in first degree relative; Translations: [Family history of malignant neoplasm of breast] 92-39-2130ImaszzyoFgbgukwlhrvk (1 source)Evd-zfeigp34-64myworx48-84-4359Ynmlgjc tract infections (4 sources)Other cystitis without hematuria; Translations: [Recurrent urinary tract infection]Onset: 717907-55-0951Ivumwert Past or Other Problems Problem ClassificationProblemDateDocumented DateEpisodic/ChronicGenitourinary symptoms and ill-defined conditions (20 sources)Frequency of micturition; Translations: [Personal history of urinary (tract) infections]Onset: 08-18-2020 Resolved: 72-98-6244CqnzddbzUerjhip (1 source)Candidiasis of vulva and vaginaOnset: 10-19-2021 Resolved: 89-00-6590DmosvgkxSjsea diseases of bladder and urethra (4 sources)Unspecified urethral stricture, female; Translations: [UNSP URETHRAL STRICTURE FEMALE]Onset: 80-57-8087MiibxjxdGwxui female genital disorders (1 source)Other specified noninflammatory disorders of vaginaOnset: 10-19-2021 Resolved: 56-99-7250WkksvotwCumfh nutritional; endocrine; and metabolic disorders (17 sources)Body mass index less than 20; Translations: [Body mass index (BMI) 19.9 or less, adult]Onset: 860655-06-8864IrxtofjqLkshrhbm codes; unclassified (16 sources)Non-smoker; Translations: [Other specified health status]Onset: 294843-67-5298Roxmrtnt Results Test NameValueInterpretationReference RangeFacilityFami Medicine Office/Clinic Noteon 56-63-9442Fwqmqx Medicine Office/Clinic NoteFamily Medicine Office/Clinic Note HPI Staff Pt is presenting to [facility], yearly wellness Establish Care: History: Any previous diagnosis: none History of seeing any specialist: saw urology when she was 18 for cystoscopy due to reoccurring UTIs When was your last doctors visit: 09/03/24 Last provider: Baltazar Any recent labs: 09/05/24 Health Maintenance UTD: Colonoscopy: none Mammogram: July 2025 - normal Pelvic/Pap: 2024 - normal Acute: Current issues/complaints: none History of Present Illness Patient is a 24-year-old female with a past medical history of urethral stricture s/p cystoscopy with urethral dilation, family history of breast cancer, and vitamin D deficiency who presented to [facility]. Patient has a family history of breast cancer in her mother (diagnosed at age 35). Patient had a normal mammogram in Jul 2025. She denied noticable breast masses or other changes. As for patient's history of urinary issues, she reported she used to wet the bed as a teenager, would not be able to empty her bladder completely, and had recurrent UTIs. She previously saw Urology and had a urethra dilation. She was also advised to drink more water and avoid bladder irritants. Hermain triggers for loss of bladder control are alcohol and other bad foods. She drinks caffeine without much issue. Patient has been sexually active with one male partner for the past 5 years and completed cervical cancer screenings with her CLOTH MEASURER (Dr. Rousseau), last done in December or January this year. Patient reported prior STD screening has been negative. Patient drinks alcohol rarely and does not use tobacco or illicit drugs. Patient denied family history of know cardiac conditions but did mention her maternal grandfather had a form of lymphatic cancer and his parents also had cancer. Patient's paternal family is history is grossly unknown.Dad family hx unknown. Patient is interested in checking her blood type an other baseline labs. Review of Systems PHQ Score Initial Depression Screen Score: 0 SCORE Pertinent review of systems is addressed in the HPI. Physical Exam Vitals & Measurements T: 36.6 ???C(Temporal Artery) HR: 75(Peripheral) RR: 18 BP: 116/68 SpO2: 97% HT: 62 in HT: 156.5 cm WT: 122.577 lb WT: 55.6 kg BMI: 22.7 General: Alert and oriented, in no acute distress HEENT: - Normocephalic, atraumatic - EOMI, conjunctiva WNL Cardiovascular: Regular rate and rhythm, no murmur/rubs/gallops, no lower extremity edema Respiratory: Lungs clear to auscultation BL without wheezing/rales/rhonchi, normal respiratory effort Abdomen: Soft, nontender, nondistended Neurologic: Grossly intact, normal gait Skin: Warm, dry, intact Psych: Normal mood, normal affect Assessment/Plan 1. Family history of breast cancer (Z80.3: Family history of malignant neoplasm of breast) Mammogram from 08/13/2025 (ordered by Dr. Rousseau) was reviewed - plan for annual screening. 2. Vitamin D deficiency (E55.9: Vitamin D deficiency, unspecified) Patient completed a round of supplementation. Will recheck Vitamin D level. Ordered: Vitamin D 25 Hydroxy 3. Leukopenia (D72.819: Decreased white blood cell count, unspecified) Mild Will recheck CBC at next lab draw. Ordered: ABO/Rh Basic Metabolic Panel CBC w/ Auto Diff 4. Wellness examination (Z00.00: Encounter for general adult medical examination without abnormal findings) Will check baseline labs. Ordered: ABO/Rh Follow-up With When Contact Information Juan Irvin DO, DARREN, PED In 1 year Additional Instructions: Problem List/Past Medical History Ongoing Family history of breast cancer Incomplete bladder emptying Leukopenia Mixed incontinence Recurrent UTI Historical No qualifying data Procedure/Surgical History Cystoscopy (08/14/2020). Medications No active medications Allergies Milk Products (Cramping) ibuprofen (Swelling) Social History Alcohol Never., 08/30/2024 Substance Abuse Never., 08/30/2024 Tobacco Never (less than 100 in lifetime) Tobacco Use:. Never Smokeless Tobacco Use:. Household tobacco concerns: No. Yes, 09/10/2025 Family History Hypertension: Mother. Primary malignant neoplasm [...] unspecified formulation 05/06/2000 Recorded Hib, unspecified formulation (more content not included)...Normal [facility] HospitalComment on above:Result Comment: Electronically Signed By: Juan Irvin DO\.br\Date and Time Signed: 09/11/25 06:15 EST Ambulatory Visit Summaryon 94-85-6363Tswexaxsig Visit SummaryAmbulatory Visit Summary SHIV RIOS :2000 Visit Date:09/10/2025 Ambulatory Visit Instructions Your Diagnosis Family history of breast cancer BMI 22.0-22.9, adult Your Care Team Attending Physician - Juan Irvin DO Primary Care Physician - GERMAN LEDESMA CNP Procedures Performed Cystoscopy (08/14/2020). Discharge Vitals Temperature (Temporal Artery) 36.6 ???C Heart Rate (Peripheral) 75 Respiratory Rate 18 Blood Pressure 116/68 Height 156.5 cm Height 62 in Weight 55.6 kg Weight 122.577 lb BMI 22.7 What to do next Scheduled Follow-Up Appointments Tuesday2025 9:40 AM EST With: Juan Irvin DO Where: [place] [id number] You Need to Schedule the Following Appointments Follow Up with Juan Irvin DO, DARREN, PED When: In 1 year Where: Allergies Milk Products (Cramping) ibuprofen (Swelling) Problems Ongoing - Any problem that you are currently receiving treatment for. Body mass index (BMI) of 19.0-19.9 in adult Family history of breast cancer Incomplete bladder emptying Mixed incontinence Recurrent UTI Patient Survey You may receive a survey via text or e-mail asking about your office visit. Please share your experience with us by completing your survey. We appreciate your feedback and thank you for choosing us for your care. Patient Portal You may access all of your results and other medical record information on our secure patient portal. If you are not signed up for this yet, please contact [address] at [phone] to get signed up today. Language Information Language assistance services are available as needed. [facility] PREG QUANT HCGon 06-12-2025 HCG MSONWRMTGEBP6qPN/mLNOMS HealthcareComment on above:5-50 0.2-1 WEEK 50-500 1-2 WEEKS 100-5,000 2-3 WEEKS 500-10,000 3-4 WEEKS 1,000-50,000 4-5 WEEKS 10,000-100,000 5-6 WEEKS 15,000-200,000 6-8 WEEKS 10,000-100,000 2-3 MONTHS [facility]YNCNOMS HealthcareTHE [facility] PREG QUANT HCGon 55-08-9586UYZ UWKKROUAZTLM77bGV/mL NOMS HealthcareComment on above:5-50 0.2-1 WEEK 50-500 1-2 WEEKS 100-5,000 2-3 WEEKS 500-10,000 3-4 WEEKS 1,000-50,000 4-5 WEEKS 10,000-100,000 5-6 WEEKS 15,000-200,000 6-8 WEEKS 10,000-100,000 2-3 MONTHS [facility]NCN[facility] HealthcareTHE [facility] PREG QUANT HCGon 98-78-4872RHI KMLCRODSELKH32pQW/mL NOMS HealthcareComment on above:5-50 0.2-1 WEEK 50-500 1-2 WEEKS 100-5,000 2-3 WEEKS 500-10,000 3-4 WEEKS 1,000-50,000 4-5 WEEKS 10,000-100,000 5-6 WEEKS 15,000-200,000 6-8 WEEKS 10,000-100,000 2-3 [facility]TH[facility] PREG QUANT HCGon 99-31-3095TYR VXJZDQCRXUKD52xGY/mL [facility] HealthcareComment on above:5-50 0.2-1 WEEK 50-500 1-2 WEEKS 100-5,000 2-3 WEEKS 500-10,000 3-4 WEEKS 1,000-50,000 4-5 WEEKS 10,000-100,000 5-6 WEEKS 15,000-200,000 6-8 WEEKS 10,000-100,000 2-3 MONTHS [facility] PREG QUANT HCGon 54-17-6886ODK BDLTXZYIVFOD079tND/mL [facility] HealthcareComment on above:5-50 0.2-1 WEEK 50-500 1-2 WEEKS 100-5,000 2-3 WEEKS 500-10,000 3-4 WEEKS 1,000-50,000 4-5 WEEKS 10,000-100,000 5-6 WEEKS 15,000-200,000 6-8 WEEKS 10,000-100,000 2-3 [facility] ( test) Ql (U)on 86-88-9100Fbknifyvzxliaa and review of laboratory resultsAbnormalSSM Health CarePreg Test, UrPositive NegativeNOResearch Psychiatric Center HealthcareIGP,APTIMA HPV,AGE GDLNon 81-70-5320ORB GDLN ACOG TESTINGNote.NOMS HealthcareComment on above:TESTS RESULT FLAG UNITS REF RANGE LAB Clinician Provided Cytology Information Source.............Cervix;Endocervix No. of containers..01 ThinPrep Vial Age Algo ACOG Karen... FLAG LEGEND: L-Low Normal,H-High Normal,LL-Alert Low,HH-Alert High <-Panic Low,>-Panic High,A-Abnormal,AA-Critical Abnormal Performed at: 01 =G [address] [address] Felicia Renee MD, IGP, RFX APTIMA HPV ASCUNote.NOMS HealthcareComment on above:TESTS RESULT FLAG UNITS REF RANGE LAB DIAGNOSIS: 02 NEGATIVE FOR INTRAEPITHELIAL LESION OR MALIGNANCY. Specimen adequacy: 02 Satisfactory for evaluation. Endocervical and/or squamous metaplastic cells (endocervical component) are present. Performed by: Thomas Hurst, Rental Representative ([facility]) . 02 Note: Note 03 [...] High,A-Abnormal,AA-Critical Abnormal Performed at: 02 KWCYT [facility] [place] Cyto [facility]o [address] [place] [address] Wing Castillo MD, [address] [address] Felicia Renee MD, Performed at: =G - [facility] [id number] Senior Marketing Data Analyst: Felicia Renee MD, Phone: [phone] Performed at: [facility] [address] [place], [place] [id number] Senior Marketing Data Analyst: Wing Castillo MD, Phone: [phone] BRUSH-SPATULA CERVIX ENDOCERVIX CLINISYNCNOMS HealthcareHCG ( test) Ql (U)on 61-41-9868Grguouaxnuaatc and review of laboratory resultsNormalNOMS HealthcarePreg Test, UrNegative NegativeNOMS HealthcareNOMS HealthcareUrinalysis macro (dipstick) panel (U)on 19-03-5312Mueunmijr, UANegativeNegative - 4(70) +++ mg/dLNOMS HealthcareBlood, UAPositiveNegative - 50 Duncan/mcLNOMS HealthcareComment on above:trace-intact Clarity, UAClearNOMS HealthcareColor, UAYellowNOMS HealthcareGlucose, UANegative Negative - 2000(110) ++++ mg/dLNOMS HealthcareInterpretation and review of laboratory resultsAbnormalNOMS HealthcareKetones, UANegativeNegative - 160(16) ++++ mg/dLNOMS HealthcareLeukocytes, UANegativeNegative - 500+++ Xi/mcLNOMS HealthcareNitrite, UANegativeNegative - PositiveNOMS HealthcarepH, UA6.55 - 9 NOMS HealthcareProtein, UANegativeNegative - 2000(20) ++++ mg/dLNONE Healthcare Spec Grav, UA1.011 - 1.03NOMS HealthcareUrobilinogen, UA0.20.2 - 12 mg/dLNONE HealthcareNOMS HealthcareLaboratory - Chemistry and Chemistry - challengeon 11-64-6692Qqdtuthaa Ql (U)NegativeNegativeNOMS HealthcareGlucose [Mass/Vol] NegativeNegativeNOMS HealthcareKetones Ql (U)NegativeNegativeNOMS HealthcarepH (U)6 [pH]5.0 - 6.0NOMS HealthcareSpecific gravity (U) [Rel density]1.0151.001 - 1.035NOMS HealthcareUrobilinogen (U) [Mass/Vol]Negative0.2 - 1.0[facility] - Hematology and Cell countson 99-36-0219Dorgyosayz Ql (U)1+Negative NOMS HealthcareLaboratory - Urinalysison 55-16-8831Szgagli Ql (U)Negative NegativeNOMS HealthcareProtein Ql (U)NegativeNegativeNOMS HealthcareNo Panel Informationon 04-09-3884Plnappdoegriwk and review of laboratory resultsAbnormal NOMS HealthcareLEUKOCYTES3+NegativeNOMS HealthcareNOMS HealthcareCBC w/ Auto Diffon 71-72-7699Aatgcrppk/100 WBC (Bld)1.1 %Normal0.0-2.0[facility] Western MarylandComment on above:Performed By: #### [id number] #### [facility] [address], [place] [address]Nhzssyuva/Leukocytes Auto (Bld) [Pure # fraction]0.0 E9/LNormal 0.0-0.2FMetroHealth Cleveland Heights Medical CenterComment on above:Performed By: #### [id number] #### [facility] [address], [place] [address]Dzizumeluhx (Bld) [#/Vol]0.1 E9/LNormal0.0-0.5FMetroHealth Cleveland Heights Medical CenterComment on above:Performed By: #### [id number] #### [facility] [address], [place] [address]Jzuloubspxi/100 WBC (Bld)2.1 %Normal0.0-8.0[facility] HospitalComment on above:Performed By: #### [id number] #### [facility] [address] [place] [address]Gqbhuzualaf distribution width (RBC) [Ratio]13.2 %Normal 10.9-14.2FMetroHealth Cleveland Heights Medical CenterComment on above:Performed By: #### [id number] #### [facility] [address] [place] [address]Dgkfurwuyz (Bld) [Volume fraction]39.1 %Mtczcp30.0-46.0[facility] HospitalComment on above:Performed By: #### [id number] #### [facility] [address] [place] [address]Nlcllxudne (Bld) [Mass/Vol]13.2 g/vELbrehq04.0-16.0[facility] HospitalComment on above:Performed By: #### [id number] #### [facility] [address] [place] [address]Nmcdajscibf (Bld) [#/Vol]1.3 E9/LNormal1.0-4.0[facility] HospitalComment on above:Performed By: #### [id number] #### [facility] [address] [place] [address]Pphxoxiwisz/100 WBC (Bld)32.6 %Obnsgt73.0-50.0[facility] HospitalComment on above:Performed By: #### [id number] #### [facility] [address] [place] [address]NYH (RBC) [Entitic mass]32.7 mnUtxedn05.0-34.0[facility] HospitalComment on above:Performed By: #### [id number] #### [facility] [address] [place] [address]ZJHN (RBC) [Mass/Vol]33.8 g/hHZlmywd02.4-36.0[facility] HospitalComment on above:Performed By: #### [id number] #### [facility] [address] [place] [address]DTP (RBC) [Entitic vol]96.8 vIMkfqiy10.0-100.0[facility] HospitalComment on above:Performed By: #### [id number] #### [facility] [address] [place] [address]Wsbafkhpq (Bld) [#/Vol]0.3 E9/LNormal0.2-1.0[facility] HospitalComment on above:Performed By: #### [id number] #### [facility] [address] [place] [address]Lggtuuxnhoy (Bld) [#/Vol]2.2 E9/LNormal2.0-7.5FMetroHealth Cleveland Heights Medical CenterComment on above:Performed By: #### [id number] #### [facility] [address] [place] [address]Rnkldpiuwry/100 WBC (Bld)56.3 %Wndpgi70.0-75.0[facility] HospitalComment on above:Performed By: #### [id number] #### [facility] [address] [place] [address]Wavdmacb920.0 E9/LQljbhl610.0-500.0[facility] Comment on above:Performed By: #### [id number] #### [facility] [address] [place] [address]Ycfedbhd mean volume (Bld) [Entitic vol]8.5 fLNormal6.4-10.8 [facility] HospitalComment on above:Performed By: #### [id number] #### [facility] [address] [place] [address]MLA (Bld) [#/Vol]4.0 E12/LLow4.3-5.9[facility] Comment on above:Performed By: #### [id number] #### [facility] [address], [place] [address]EUR corrected for nucl RBC Auto (Bld) [#/Vol]3.9 E9/LLow 4.0-11.0[facility] HospitalComment on above:Performed By: #### [id number] #### [facility] [address], [place] [address]ZMLUBAFTCOcehuoc By: SYSTEM SYSTEM on - hydroxyvitamin D3 [Mass/Vol]20.1 ng/mLLow30.0 - 100.0 ng/mLRemisol ChemAlbumin [Mass/Vol]4.2 g/dLNormal3.3 - 5.0 gm/dLRemisol ChemAlbumin/Globulin [Mass ratio] 1.3 {ratio}Normal1.1 - 2.2Remisol ChemALP [Catalytic activity/Vol]45 [iU]/d Qqbhzr34 - 98 Int._Unit/LRemisol ChemALT No additional P-5'-P [Catalytic activity/Vol]13 [iU]/dNormal6 - 46 Int._Unit/LRemisol ChemAnion gap [Moles/Vol]9 mmol/LNormal6 - 16 mEq/LRemisol ChemAST [Catalytic activity/Vol]17 [iU]/dNormal 5 - 43 Int._Unit/LRemisol ChemBilirubin [Mass/Vol]1.1 mg/dLNormal0.0 - 1.1 mg/dL Remisol ChemCalcium [Mass/Vol]9.1 mg/dLNormal8.9 - 11.1 mg/dLRemisol Chem Chloride [Moles/Vol]105 mmol/ONusmjn860 - 111 mmol/LRemisol ChemCholesterol [Mass/Vol]160 mg/aKQeqrnl260 - 200 mg/dLRemisol ChemCholesterol in HDL [Mass/Vol]78 mg/dLInvalid Interpretation CodeRemisol ChemComment on above:Result Comment: '>= 60 LOW RISK' '<= 40 HIGH RISK'Cholesterol in LDL [Mass/Vol]67 mg/dLNormal<=129mg/dLRemisol ChemCholesterol in VLDL [Mass/Vol]11 mg/dLNormal7 - 40 mg/dLRemisol ChemCO2 [Moles/Vol]27 mmol/QTsypfu24 - 31 mmol/LRemisol ChemCobalamin (Vitamin B12) [Mass/Vol]303 pg/nZZegrib69 - 1500 pg/mLRemisol ChemCreatinine [Mass/Vol]0.8 mg/dLNormal0.5 - 1.3 mg/dLRemisol RyucgMCS129 mL/min/1.73 b2Xsozeh >=59mL/min/1.73 q5Rpyukzx ChemGlobulin (S) [Mass/Vol]3.2 g/dLNormal1.4 - 4.0 gm/dLRemisol ChemGlucose [Mass/Vol]84 mg/kGNlsddp00 - 199 mg/dLRemisol Chem Potassium [Moles/Vol]4.1 mmol/LNormal3.5 - 5.3 mmol/LRemisol ChemProtein [Mass/Vol]7.4 g/dLNormal6.0 - 7.8 gm/dLRemisol ChemSodium [Moles/Vol]137 mmol/L Mpoapt971 - 145 mmol/LRemisol ChemTriglyceride [Mass/Vol]53 mg/dLNormal <=149mg/dLRemisol ChemTSH Qn1.80 m[IU]/LNormal0.34 - 5.60 mcIU/mLRemisol Chem Urea nitrogen [Mass/Vol]10 mg/dLNormal5 - 21 mg/dLRemisol ChemUrea nitrogen/Creatinine [Mass ratio]12 mg/mqSrbgzw53 - 20Remisol ChemCMPon 91-04-1584Hkujtkl [Mass/Vol]4.2 g/dLNormal3.3-5.0[facility] Comment on above:Performed By: #### [id number] #### [facility] [address], [place] [address]Jsgksua/Globulin (S) [Mass conc ratio]1.8Udibab2.1-2.2FMetroHealth Cleveland Heights Medical CenterComment on above:Performed By: #### [id number] #### [facility] [address], [place] [address]LGD [Catalytic activity/Vol]45 Int._Unit/CMsdreq02-00HutagmOhiohealth O'Bleness HospitalComment on above:Performed By: #### [id number] #### [facility] [address] [place] [address]XPH No additional P-5'-P [Catalytic activity/Vol]13 Int._Unit/L Normal6-46[facility] HospitalComment on above:Performed By: #### [id number] #### [facility] [address], [place] [address]Selii gap [Moles/Vol]9 mmol/LNormal6-16[facility] HospitalComment on above:Performed By: #### [id number] #### [facility] [address] [place] [address]FHS [Catalytic activity/Vol]17 Int._Unit/LNormal5-43[facility] HospitalComment on above:Performed By: #### [id number] #### [facility] [address] [place] [address]Yxrenlanq [Mass/Vol]1.1 mg/dLNormal0.0-1.1FMetroHealth Cleveland Heights Medical CenterComment on above:Performed By: #### [id number] #### [facility] [address] [place] [address]Gvsgzeq [Mass/Vol]9.1 mg/dLNormal8.9-11.1FMetroHealth Cleveland Heights Medical CenterComment on above:Performed By: #### [id number] #### [facility] [address] [place], [place] [address]Zwexdrlz [Moles/Vol]105 mmol/NNjnact145-295HsbhfhOhiohealth O'Bleness HospitalComment on above:Performed By: #### [id number] #### [facility] [address] [place], [place] [address]LI9 [Moles/Vol]27 mmol/LKcksqc77-72SglahzOhiohealth O'Bleness Hospital Comment on above:Performed By: #### [id number] #### [facility] [address] [place], [place] [address]Tieyaqdsym [Mass/Vol]0.8 mg/dLNormal0.5-1.3FMetroHealth Cleveland Heights Medical CenterComment on above:Performed By: #### [id number] #### [facility] [address] [place], [place] [address]Aqqybnfy (S) [Mass/Vol]3.2 g/dLNormal1.4-4.0[facility] HospitalComment on above:Performed By: #### [id number] #### [facility] [address] [place], [place] [address]Fsvbvmd [Mass/Vol]84 mg/pCAzbqqz48-353QomvzmOhiohealth O'Bleness HospitalComment on above:Performed By: #### [id number] #### [facility] [address] [place] [address]Gimmtttst [Moles/Vol]4.1 mmol/LNormal3.5-5.3FMetroHealth Cleveland Heights Medical CenterComment on above:Performed By: #### [id number] #### [facility] [address] [place], [place] [address]Nmxgert [Mass/Vol]7.4 g/dLNormal6.0-7.8[facility] HospitalComment on above:Performed By: #### [id number] #### [facility] [address] [place] [address]Syzhjq [Moles/Vol]137 mmol/TTmfabe557-219YyxhtuOhiohealth O'Bleness HospitalComment on above:Performed By: #### [id number] #### [facility] [address] [place], [place] [address]Sdbr nitrogen [Mass/Vol]10 mg/dLNormal5-21[facility]ess HospitalComment on above:Performed By: #### [id number] #### [facility] [address] [place], [place] [address]Dlot nitrogen/Creatinine [Mass ratio]12 No HfqoySunlju65-40 [facility] HospitalComment on above:Performed By: #### [id number] #### [facility] [address] [place], [place] [address]JEUSPSNKZLYqkqzkv By: SYSTEM SYSTEM on 54-06-0086Blappeqwe/100 WBC (Bld)1.1 %Normal0.0 - 2.0 %Remisol HemeBasophils/Leukocytes Auto (Bld) [Pure # fraction]0.0 E9/LNormal0.0 - 0.2 E9/LRemisol HemeEosinophils (Bld) [#/Vol]0.1 E9/LNormal0.0 - 0.5 E9/LRemisol HemeEosinophils/100 WBC (Bld)2.1 %Normal0.0 - 8.0 %Remisol HemeErythrocyte distribution width (RBC) [Ratio]13.2 %Cqladv14.9 - 14.2 %Remisol HemeHematocrit (Bld) [Volume fraction]39.1 %Fudduo53.0 - 46.0 % Remisol HemeHemoglobin (Bld) [Mass/Vol]13.2 g/pJMudzae60.0 - 16.0 gm/dLRemisol HemeLymphocytes (Bld) [#/Vol]1.3 E9/LNormal1.0 - 4.0 E9/LRemisol Heme Lymphocytes/100 WBC (Bld)32.6 %Fcczwg78.0 - 50.0 %Remisol HemeMCH (RBC) [Entitic mass]32.7 mgGugkmr49.0 - 34.0 pgRemisol HemeMCHC (RBC) [Mass/Vol]33.8 g/dL Vgewqu88.4 - 36.0 gm/dLRemisol HemeMCV (RBC) [Entitic vol]96.8 mXEkgfnj50.0 - 100.0 fLRemisol HemeMonocytes (Bld) [#/Vol]0.3 E9/LNormal0.2 - 1.0 E9/LRemisol HemeMonocytes/100 WBC (Bld)7.9 %Normal4.0 - 14.0 %Remisol HemeNeutrophils (Bld) [#/Vol]2.2 E9/LNormal2.0 - 7.5 E9/LRemisol HemeNeutrophils/100 WBC (Bld)56.3 % Pxlhkg12.0 - 75.0 %Remisol WoliHrgyhtpe156.0 E9/QMrebus170.0 - 500.0 E9/LRemisol HemePlatelet mean volume (Bld) [Entitic vol]8.5 fLNormal6.4 - 10.8 fLRemisol HemeRBC (Bld) [#/Vol]4.0 E12/LLow4.3 - 5.9 E12/LRemisol HemeWBC corrected for nucl RBC Auto (Bld) [#/Vol]3.9 E9/LLow4.0 - 11.0 E9/LRemisol HemeLipid Panelon 73-96-2894Bdzqswphcsu [Mass/Vol]160 mg/nFPibbet013-243CurchvOhiohealth O'Bleness HospitalComment on above:Performed By: #### [id number] #### [facility] [address] [place], [place] [address]Ssdelglivrv in HDL [Mass/Vol]78 mg/dLInvalid Interpretation CodeOhiohealth O'Bleness HospitalComment on above:Result Comment: '>= 60 LOW RISK' '<= 40 HIGH RISK'Performed By: #### [id number] #### [facility] [address] [place], [place] [address]Ewjdnhrwebq in LDL [Mass/Vol]67 mg/dLNormal<=129[facility] HospitalComment on above:Performed By: #### [id number] #### [facility] [address] [place], [place] [address]Szmlhqsjmtn in VLDL [Mass/Vol]11 mg/dLNormal7-40[facility] HospitalComment on above:Performed By: #### [id number] #### [facility] [address] [place], [place] [address]Taerbkfwscvt [Mass/Vol]53 mg/dLNormal<=149[facility] HospitalComment on above:Performed By: #### [id number] #### [facility] [address] [place], [place] [address]FIO With T4fr Reflexon 56-54-6817NQF Qn1.80 m[IU]/LNormal 0.34-5.60[facility] HospitalComment on above:Performed By: #### [id number] #### [facility] [address] [place], [place] [address]Qoh B12on 45-21-2197Gfpxeaawi (Vitamin B12) [Mass/Vol]303 pg/mL Khlktp61-3926ItcisyOhiohealth O'Bleness HospitalComment on above:Performed By: #### [id number] #### [facility] [address] [place], [place] [address]pJMCqi 16-39-6743iLCN696 mL/min/1.73 v6Ruusqh>=59[facility] HospitalComment on above:Performed By: #### [id number] #### [facility] [address] [place], [place] [address]Sephuwolfb - Chemistry and Chemistry - challengeon 03-09-2024 Bilirubin Ql (U)[facility] HospitalGlucose (U) [Mass/Vol] NegativeOhio State East HospitalKetones Ql (U)[facility] HospitalpH (U)6.0 [pH][facility] Hospitalpecific gravity (U) [Rel density]1.005[facility] HospitalLaboratory - Specimen informationon 70-64-7664Icaowghqgg (U)clearOhio State East HospitalColor (U)lightyellowOhio State East HospitalLaboratory - Urinalysison 19-32-2171Cymrnrzfh esterase Test strip Ql (U)smallOhio State East HospitalNitrite Ql (U)See commentOhio State East HospitalComment on above:WNLProtein Ql (U)[facility] HospitalNo Panel Informationon 83-73-1960Gwwac Occult BloodmoderateOhio State East HospitalUrine Cultureon 79-33-5112Mhuocfgz identified Cx Nom (U) <9,000 colonies/ml mixed bacterial skin contaminants 2 Days PERFORMED BY: [facility] [address] [place] [address] PATHOLOGIST CONDITIONING ROOM WORKER SOPHIA MCARTHUR M.D.NormalThe [facility] Physician GroupComment on above:Performed By: #### CUU #### [facility] [address] StreetUrine culture routineOrdered By: Sisi Jha on 84-68-7784Hwkxwhbo identified Cx Nom (U)2 DaysOhio State East Hospital Urinalysis - DIPSTICKon 84-13-7516Okaeslyymo (U)cloudyNbates county memorial hospital Meilimei Other Bilirubin Ql (U)NegativeZmags Other Color (U)light yellowZmags Other Glucose Ql (U)Psychiatric hospitalZmags Other Hemoglobin Ql (U)Psychiatric hospitalGrinbath Meilimei Other Ketones Ql (U)Psychiatric hospitalZmags Other Leukocyte esterase Test strip Ql (U)moderateNoGrinbath Meilimei Other Nitrite Ql (U)Psychiatric hospitalGrinbath Meilimei Other pH (U)5.0 [pH][place] Meilimei Other Protein Ql (U)Psychiatric hospitalGrinbath Meilimei Other Specific gravity (U) [Rel density]1.010[place] Meilimei Other Urobilinogen (U) [Mass/Vol]wnlNbates county memorial hospital Meilimei Other Vital Signs Date TimeVital SignValuePerforming IxjxqdvzvNqzbnted15-86-0710 11:49-0400Body mass index (BMI) [Ratio]21.5 kg/z0Hjqwo Onelia DO Work Phone: [facility] Yekskghbmj75-24-7656 11:49-0400Body vgyquy01.62 kgCorey Onelia DO Work Phone: [facility] Bflygmmazn90-17-3067 11:49-0400Diastolic blood zfjsnoqu96 mm[Hg]Ben Onelia DO Work Phone: [phone] [place], [place] [address]Nocbsamlrw30-10-3110 11:49-0400Systolic blood cifdqovt186 mm[Hg]Ben Onelia DO Work Phone: [phone])[facility] [place], [place] [address]Ewbbbtpcmz71-89-9968 11:10-0400Body mass index (BMI) [Ratio]21.69 kg/j7Ewoea Onelia DO Work Phone: [phone])[facility] [place], [place] [address]Hnxvxfqqqu39-58-9006 11:10-0400Body jzziaf55.07 kgCorey Onelia DO Work Phone: [phone])[facility] [place], [place] [address]Ewaehvbgtg83-60-4815 11:10-0400Diastolic blood rfzctyod37 mm[Hg]Ben Onelia DO Work Phone: [phone])[facility] [place], [place] [address]Jankxbwdrm65-80-3275 11:10-0400Systolic blood eewxoazl449 mm[Hg]Ben Onelia DO Work Phone: [phone])[facility] [place], [place] [address]Jyfjkyglra41-92-4980 11:22-0400Body mass index (BMI) [Ratio]21.69 kg/d2Jpywa Onelia DO Work Phone: [phone])[facility] [place], [place] [address]Stpnulzhpq97-69-2345 11:22-0400Body hheihb18.07 kgCorey Onelia DO Work Phone: [phone])[facility] [place], [place] [address]Zyfklfxtbs58-89-0827 11:22-0400Diastolic blood ifgwpktz56 mm[Hg]Ben Onelia DO Work Phone: [phone] [place], [place] [address]78[address]03-25-2025 11:22-0400Systolic blood zykiosfw330 mm[Hg]Ben Onelia DO Work Phone: [phone] [place], [place] [address]Kgoepkjcxe69-07-6726 19:47-0500Body mass index (BMI) [Ratio]21.73 kg/e1Glikpqhan Fagant EXTRUDER OPERATOR Work Phone: [facility] CareVmqlpgmiav78-34-9660 19:47-0500Body temperature 97.2 [degF]Licha Melvinfrant EXTRUDER OPERATOR Work Phone: [facility] CareLwmtknvyvt06-51-6113 19:47-0500Body eaogdx52.16 kgCarhan Arguelles EXTRUDER OPERATOR Work Phone: [facility] CareEiyughuhsk17-53-6343 19:47-0500Diastolic blood kqrfodgt02 mm[Hg]Licha Fagant EXTRUDER OPERATOR Work Phone: [facility] CareZspkdbxqqw10-14-1297 19:47-0500Heart rate85 /min Licha Fagant EXTRUDER OPERATOR Work Phone: [facility] CareIywaazrnnf89-59-5707 19:47-8826TsN6% (BldA) [Mass fraction]99 %Licha Fagant EXTRUDER OPERATOR Work Phone: [facility] CareKbseioywte70-37-7499 19:47-0500Systolic blood nsqemzkf670 mm[Hg]Licha Fagant EXTRUDER OPERATOR Work Phone: [facility] CareCxkrrucxrb02-23-3988 10:23-0400Body dtxaoh661.4 cmAPRN Sisi Garcíaler Work Phone: [phone]07-16-2024 10:23-0400 Body mass index (BMI) [Ratio]20.6 kg/m2APRN Sisi Garcíaler Work Phone: [phone]07-16-2024 10:23-0400 Body phfcxovbhim62.4 [degF]PEDIATRIC DENTAL HYGIENIST Sisi Jha Work Phone: [phone]07-16-2024 10:23-0400 Body kgAPRN Sisi Jha Work Phone: [phone] [place], [place] 9060407-16-2024 10:23-0400 Diastolic blood gmxzaygh62 mm[Hg]PEDIATRIC DENTAL HYGIENIST Sisi Jha Work Phone: [phone] [place], [place] 9060407-16-2024 10:23-0400 Heart rate76 /minAPRN Sisi Jha Work Phone: [address] [place], [place] 3240407-16-2024 10:23-0400 SaO2% (BldA) [Mass fraction]99 %PEDIATRIC DENTAL HYGIENIST Sisi Jha Work Phone: [facility]07-16-2024 10:23-0400 Systolic blood mdtarujv392 mm[Hg]PEDIATRIC DENTAL HYGIENIST Sisi Jha Work Phone: [facility]05-10-2024 11:07-0400 Body .4 cmOhio State East Hospital05-10-2024 11:07-0400Body mass index (BMI) [Ratio]21.1 kg/f3ImuhodvosOhio State East Hospital05-10-2024 11:07-0400Body rwkuozfdxzc07 [degF][facility]05-10-2024 11:07-0400Body cljnor30.98 kgOhio State East Hospital05-10-2024 11:07-0400Diastolic blood lmacjihc15 mm[Hg][facility] 03-09-2024 11:07-0400Heart rate74 /minOhio State East Hospital 03-09-2024 11:07-4212EcG6% (BldA) [Mass fraction]98 %[facility]05-10-2024 11:07-0400Systolic blood irfournc298 mm[Hg][facility]12-20-2021 19:00-0500Body .4 cmThomas Je Other noZmags Other 12-20-2021 19:00-0500Body mass index (BMI) [Ratio]20.5 kg/h6Udtoea Je Other noZmags Other 12-20-2021 19:00-0500Body ujaszohwsjp90.9 [degF]Hardik Wooten Other noZmags Other 12-20-2021 19:00-0500Body givipb95.63 kgThomas Harviell Other noZmags Other 12-20-2021 19:00-0500Respiratory rate18 /minThomas Je Other [facility] Meilimei Other 12-20-2021 19:00-7758KwL4% (BldA) [Mass fraction]99 % Hardik Wooten Other [facility] Meilimei Other Encounters Encounter DateEncounter TypeCare ProviderFacilityStart: 47-75-4949dluittgxkl Shauni L. BobbsFacility:[facility] BellevueStart: 09-10-2025 End: 13-06-1821wddgdksnunEngrcb L. BobbsFacility:[facility] BellevueStart: 06-12-2025 End: 59-62-8096Snarnsegi Result EncounterCorey Onelia DO Work Phone: [facility] External Department UnsolicitedStart: 06-12-2025 End: 84-45-3924Ggqclinjj Result EncounterCorey Onelia DO Work Phone: [facility] External Department UnsolicitedStart: 06-06-2025 End: 63-17-2328Mohhbqyds Result EncounterCorey Onelia DO Work Phone: [facility] External Department UnsolicitedStart: 06-06-2025 End: 55-34-3181Ojbwgvjij Result EncounterCorey Onelia DO Work Phone: [facility] External Department UnsolicitedStart: 05-30-2025 End: 60-13-0300Hmskiabys Result EncounterCorey Onelia DO Work Phone: [facility] External Department UnsolicitedStart: 05-30-2025 End: 55-16-0582Fcpxxibaz Result EncounterCorey Onelia DO Work Phone: [facility] External Department UnsolicitedStart: 05-24-2025 End: 66-27-4426Yumwoggbw Result EncounterCorey Onelia DO Work Phone: [facility] External Department UnsolicitedStart: 05-24-2025 End: 26-42-3752Mdwyahnbw Result EncounterCorey Onelia DO Work Phone: [facility] External Department UnsolicitedStart: 05-16-2025 End: 78-91-6323Fnioxi flowsheetCorey Onelia DO Work Phone: [facility] BCP OBStart: 05-16-2025 End: 50-73-3048Tzpcpe flowsheetCorey Onelia DO Work Phone: [facility] BCP OBStart: 05-16-2025 End: 43-01-6903Rsyekasvp Result EncounterCorey Onelia DO Work Phone: [facility] External Department UnsolicitedStart: 05-16-2025 End: 97-96-5566wnwtubcgwsGHSEE FAZIONot AvailableStart: 05-16-2025 End: 68-22-9040Zqmwdu outpatient visit 15 minutesCorey Onelia DO Work Phone: [facility] BCP OBComment on above:Missed mensesStart: 04-22-2025 End: 93-43-5529Zavfsr flowsheetCorey Onelia DO Work Phone: [facility] BCP OBStart: 04-22-2025 End: 24-48-9905Yzdxcj flowsheetCorey Onelia DO Work Phone: [facility] BCP OBStart: 04-22-2025 End: 18-93-4047lsdsahkxdfXEXSB FAZIONot AvailableStart: 04-22-2025 End: 91-50-2452Poijwe outpatient visit 15 minutesCorey Onelia DO Work Phone: [facility] BCP OBComment on above:Missed mensesStart: 01-22-2025 End: 27-02-6991Sgptqsvxf Result EncounterCorey Onelia DO Work Phone: [facility] External Department UnsolicitedStart: 01-22-2025 End: 22-07-2745Rqwrnwkag Result EncounterCorey Onelia DO Work Phone: [facility] External Department UnsolicitedStart: 01-22-2025 End: 43-44-0616wscgyhsuhbLHERJ FAZIONot AvailableStart: 01-22-2025 End: 92-65-0553Dudwauj encounter procedureCorey Onelia DO Work Phone: [facility] Work Phone: Start: 01-22-2025 End: 27-85-8788Oybilcxn preventive med est patient 18-39 yrsCorey Onelia DO Work Phone: [facility] BCP OBComment on above:Well woman exam with routine gynecological exam; Frequency of urination; Family history of breast cancer in motherStart: 11-13-2024 End: 77-61-9918Ndzdon outpatient visit 25 minutesCarrie A Rylant EXTRUDER OPERATOR Work Phone: [facility] SWS UCComment on above:Acute cystitis with hematuria (Primary Dx); Vaginal discomfortStart: 11-13-2024 End: 48-45-0722nmrjflgdagSHJDRN A KINDRANot AvailableStart: 09-05-2024 End: 68-03-2958Imf Drop offSHELLY Suzi LEDESMA [facility] Start: 05-15-2024 End: 61-72-9283ctojxpcmxsDIAMercy Health [facility] Hospital Work Phone: Start: 05-15-2024 End: 25-19-3546Yrxlxpp encounter procedureAPRPat Jha Work Phone: [facility] Sahil Work Phone: Start: 03-09-2024 End: 84-59-4127cgytpsqbifRfdhp L KellerFacility:[facility] Hospitaltart: 03-09-2024 End: 19-90-0482Itymuetk ReferredAPRPat Jha Work Phone: [facility] [address] Start: 03-09-2024 End: 69-96-5893klsoawmviqWoclrvzcgMercy Health St[facility] Work Phone: Start: 03-09-2024 End: 12-33-4383Revzdzd encounter procedureFirelands Physician [facility] Sahil Work Phone: Start: 10-30-2021 End: 56-78-8533hbcivrnvhhQcdzek Harviell Other noGrinbath Meilimei Other Start: 35-27-3401Zcrobekij encounterThomas ForakerFPG Urgent Care [address]al Springs RoadStart: 10-19-2021 End: 73-91-9506rqxdjjqazgXnppsg Harviell Other noGrinbath Meilimei Other Start: 51-59-1297Rxmibe outpatient visit 15 minutes Hardik FormagnusFPG Urgent Care [address] Springs RoadStart: 08-14-2020 End: 19-60-3539mqmmwxqiivGM EDGARD Maza TRIPPEFacility:H1 Procedures DateProcedureProcedure DetailPerforming ClinicianStart: 52-29-8208VRR PREG QUANT HCGCorey Onelia DO Work Phone: Start: 86-58-9073YHV PREG QUANT HCGCorey Onelia DO Work Phone: Start: 62-35-4985SPW PREG QUANT HCGCorey Onelia DO Work Phone: Start: 52-64-5383BEZ PREG QUANT HCGCorey Onelia DO Work Phone: Start: 83-62-1083YMQ PREG QUANT HCGCorey Onelia DO Work Phone: Start: 90-90-9728Erhax test visual color cmprsn methsCorey Onelia DO Work Phone: Start: 09-23-0048Ljqmu dip stick/tablet rgnt non-auto w/o micrscpCorey Onelia DO Work Phone: Start: 66-41-5770FIN,APTIMA HPV,AGE GDLNCorey Onelia DO Work Phone: Start: 23-36-0954Scual dip stick/tablet rgnt auto w/o microscopyRichardrikingston Arguelles NP Work Phone: Start: 05-92-7378Pdlxu cultureAPRN Sisi Jha Work Phone: Start: 13-38-7482UqoxvsjsynVHGDSG LEHMANN Plan of Treatment DateCare ActivityDetailAuthorStart: 01-30-2026 End: 49-78-0722Zunmyys encounter procedureNOMS [facility] OBStart: 82-66-9105Zevrodeda vaccinationNONE HealthcareStart: 01-22-2025 End: 94-80-5416OD Breast - bilateral ScreeningBilateral screening mammogram Imaging Routine Family history of breast cancer in mother Expected: 01/22/2025 (Approximate), Expires: 03/24/2026NONE HealthcareComment on above:Expected: 01/22/2025 (Approximate), Expires: 03/24/2026Start: 01-08-2025 End: 74-42-2932Ihacpac encounter vcqxhcgyo67/11/2025 9:00 AM EDT Office Visit [facility] [address] [place] [address] Ben Rousseau, DO [address] [place] [address] [facility] OBStart: 57-64-9834Noedwhsoa vaccination Influenza Vaccine (#1)[facility] HealthcareStart: 38-10-3614Qhphcvwc identified in Urine by [facility] Cervical or vaginal smear or scraping studyPap Smear Pathology and Cytology Routine Well woman exam with routine gynecological exam Ordered: 01/22/2025[facility] Healthcare Work Phone: comment on above:Ordered: 01/22/2025hCG, quantitative hCG, quantitative Lab Routine Missed menses Ordered: 04/22/2025[facility] Healthcare Work Phone: Comment on above:Ordered: 04/22/2025hCG, quantitative hCG, quantitative Lab Routine Missed menses Ordered: 05/16/2025NONE Healthcare Work Phone: comment on above:Ordered: 05/16/2025URINARY TRACT INFECTION (HTRX)URINARY TRACT INFECTION (HTRX) Lab Routine Vaginal discomfort Ordered: 11/13/2024NONE Healthcare Work Phone: Comment on above:Ordered: 11/13/2024 Immunizations Immunization DateImmunizationNotesCare ZwiujyrkYjuezcyf02-43-6518fbbzrinvatfku ACWY vaccine, unspecified formulationSHELLY BALTAZAR 157-9679Njsdqv-FkzyiPremier Health 19-63-9273znxrdzufxsdva ACWY vaccine, unspecified formulationSHELLY BALTAZAR 509-5924Tzjehv-MiraxPremier Health 69-76-2739puuheaj toxoid, reduced diphtheria toxoid, and acellular pertussis vaccine, adsorbedSHELLY BALTAZAR 055-2890Hblynz-NaxmuPremier Health 70-31-2790pexyvlp, mumps and rubella virus vaccineSHELLY BALTAZAR 799-8666Hziqsb-ZbzbxPremier Health 35-55-3276tbsstzfps B vaccine, pediatric or pediatric/adolescent dosageSHELLY BALTAZAR 326-9941Kamadc-EipbtPremier Health 13-14-5542pnnxdpb, mumps and rubella virus vaccineSHELLY BALTAZAR 702-2414Dsdfqm-DxyhoPremier Health 95-53-0283Hqe, unspecified formulationSHELLY BALTAZAR 876-3054Smacdr-FhsnaPremier Health 36-77-5754jwluxgcem virus vaccineSHELLY BALTAZAR 561-6782Dlrver-VvcczPremier Health 22-35-1363qkhxamyfx B vaccine, pediatric or pediatric/adolescent dosageSHELLY BALTAZAR 330-5972Mfnlcx-VisfuPremier Health 85-98-0629prihlhhnq B vaccine, pediatric or pediatric/adolescent dosageSHELLY BALTAZAR 119-4851Xfwzoq-RardfPremier Health 38-76-3532Rrv, unspecified formulationSHELLY BALTAZAR 849-2459Tyigqn-MaabiPremier Health 74-87-7795Aae, unspecified formulationSHELLY BALTAZAR 994-5331Onhhfb-NxorvPremier Health 25-22-5542Azu, unspecified formulationSHELLY BALTAZAR 154-9256Wrsugv-AzwsbPremier Health Payers DatePayer CategoryPayerPolicy [id number] [id number] Health Insurance [id number] [id number] 2.840.1.763403.3.57[id number] 2.840.1.281098.3.57[id number] 2..840.1.299117.3.57[id number] 2.840.1.372909.3.57[id number] 2.840.1.273434.3.57[id number] 2.16.840.1.001089.3.57[id number] 2.840.1.125804.3.579.2.[id number] [facility] [id number] 2.8[id number] [id number]-c02a-[id number] 2.840.1.015946.3.579.2.531 Social History DateTypeDetailFacilityUnknown if ever smokedNort Meilimei Other Start: 01-25-2024 End: 16-11-8077Plq [facility] End: 99-74-2884Pxxgkgy smoking status NHISNever smoked tobacco (finding) [facility] Hospitaltart: 83-71-0035Qnt Assigned At [facility] HealthcareTobacco smoking statusNeAultman Hospital Family Medicine BellevueStart: 99-26-6348Yiypivk use and exposure Smokeless tobacco non-userNOMS HealthcareStart: 11-13-2024 End: 81-65-5769Rqthpjyhz beverage intakeLifetime non-drinker (finding)N[facility]S HealthcareStart: 01-25-2024 End: 50-05-0344Wgxysso of Social functionNOMS HealthcareStart: 69-37-3605Lyy assigned at [facility] hospitalNot on fileNOMS HealthcareNEGATED: Highlighted rowStart: NINF History of tobacco usePassive smokerNOMS Healthcare Clinical Notes 11-13-2024 to 05-16-2025 Note Date & CbldGlxbSyieeagv36-24-3890 History of Present illness Narrative* Lindsey Boo LPN - 05/16/2025 11:20 AM EDT Reason for Appointment: Patient ID: Shiv Rios [...] nursing note reviewed. Exam conducted with a delivery aide present. Vitals: Estimated body mass index is [...] start on medication. Pamphlets given for all options.Patient at this time does not desire IUD, so Slynd pamphlet will be given to patient. Documented by Lindsey Boo LPN on behalf of: Ben Rousseau DO documented in this encounterSSM Health [id number] History of Present illness Narrative* Lindsey Boo LPN - 04/22/2025 11:00 AM EDT Reason for Appointment: Patient ID: Shiv Rios [...] nursing note reviewed. Exam conducted with a delivery aide present. Vitals: Estimated body mass index is 21.69 kg/m as calculated from the following: Height as of 20: 5' 1 . Weight as of this encounter: 114 lb 12.8 oz. BP: 118/76 No LMP recorded. ASSESSMENT & PLAN ICD-10-CM 1. Missed menses N92.6 POCT , urine manually resulted Patient presents for discussion of positive . Patient desires to have terminatedand will reach out to clinic in [place] as our office does not deal with termination of pregnancies.Patient given HCG lab incase she has to have proof other than positive UPT in office. Patient to reach out to office with any concerns/questions and for routine annual appointment. Documented by Lindsey Boo LPN on behalf of: Ben Rousseau DO documented in this encounterSSM Health [id number] History of Present illness Narrative* Lian Brown GEOPHYSICAL PROSPECTING PERMIT AGENT - 01/22/2025 10:40 AM EDT Reason for Appointment: Patient ID: Shiv Rios [...] nursing note reviewed. Exam conducted with a delivery aide present. Vitals: Estimated body mass index is [...] of: Ben Rousseau DO documented in this encounterSSM Health [id number] History of Present illness Narrative* Licha Arguelles NP - 11/13/2024 7:40 PM EST Images from the original note were not included. [address] , [address] [facility] [facility], [address] P: [phone] F: [phone] HPI Historian of HPI: patient Shiv Rios [...] 14 capsule; Refill: 0 documented in this encounterNONE HealthcareEvaluation + Plan note Future Appointments Appointment Date:09/05/2025 09:00:00 AM Scheduled Provider:GERMAN LEDESMA CNP Location:[facility] Appointment Type:[facility] Evaluation noteNort Meilimei Other Evaluation noteNo InformationNort Meilimei Other Evaluation noteNo assessment information available [facility] Work Phone: Evaluation note* Diagnosis Acute cystitis with hematuria- Primary Vaginal [...] this encounter [facility] - [facility] Other History general Narrative - Reported* Type Description Date Hospitalization History muscle- pulled hip [facility] [employer] [facility] Other Hospital course Narrative No data available for this section [facility] Hospital Discharge instructions No data available for this section [facility] Progress note No data available for this section [facility] Summary Purpose Family History No Family History Records FoundNo Family History Records Found No data available for this section No Family History Records FoundNo Family History Records FoundNo Family History Records FoundNo Family History Records FoundNo Family History Records FoundNo Family History Records FoundNo Family History Records FoundNo Family History Records FoundNo Family History Records Found Advance Directives No Advanced Directives Records Found Advance Directive Response Recorded Date/ Time Advance Directives No December 12:39pm Chief Complaint and Reason for Visit Chief Complaint Possible UTI Chief Complaint Possible UTI Dysuria Chief Complaint Possible UTI Dysuria FATIGUE, NAUSEA Additional Source Comments INFORMATION SOURCE (unrecogn ized section and content) DATE CREATED AUTHOR 07/28/2022 [facility] DATE CREATED AUTHOR AUTHOR'S ORGANIZ ATION 03/28/2024 [facility] DATE CREATED AUTHOR AUTHOR'S ORGANIZ ATION 09/07/2024 [facility] DATE CREATED AUTHOR AUTHOR'S ORGANIZ ATION 05/20/2025 [facility] DATE CREATED AUTHOR AUTHOR'S ORGANIZ ATION 09/11/2025 [facility] DATE CREATED AUTHOR AUTHOR'S ORGANIZ ATION 09/12/2025 [facility] Care Teams (unrecognized sec tion and content) Team Status: Active Member Role Status Dates PHYSICIAN NO FAMILY Primary Care Provider Active Team Status: Inactive Member Role Status Dates PHYSICIAN NO FAMILY Primary Care Provider Active Start: March 09, 2024 End: March 09Vernell Juarez ProviderActiveStart: March 09, 2024 End: March 09, 2024 Team Status: Inactive Member Role Status Dates Sisi Jha APRN Attending Provider Active Start: March 09, 2024 End: March 09, 2024 Team Status: Active Member Role Status Dates NON STAFF Primary Care Provider Active Team Status: Inactive Member Role Status Dates Sisi Jha APRN Attending Provider Active Start: March 09, 2024 End: March 09, 2024NON STAFFPrimary Care ProviderActiveStart: March 09, 2024 End: March 09, 2024 Team Status: Inactive Member Role Status Dates NON STAFF Primary Care Provider Active Start: May 15, 2024 End: May 15mbVernell Crocker ProviderActiveStart: May 15, 2024 End: May 15, 2024Team MemberRelationshipSpecialtyStart DateEnd Date Philip Francis, DO [address] [place] [address] [facility] Mojkcfphtx06/1/2312Team MemberRelationshipSpecialty Start DateEnd Date Philip Francis DO [address] [place] [address] [facility] Azrjglkaxe85/1/2312Team MemberRelationshipSpecialty Start DateEnd Date Philip Francis, DO [address] [place] [address] [facility] Ywjwxcbtjg16/1/2312Team MemberRelationshipSpecialty Start DateEnd Date Philip Francis DO [address] [place] [address] PCP - [facility] [place] Mbjorlmtlf44/1/ Goals (unrecognized section and content) Goals may be documented in a n alternate section Reason for Visit (unrecogniz ed section and content) ReasonCommentsAmenorrheaReasonCommentsWell Women Visit FOR RECORDS PERTAINING TO PATIENTS [...] BE BASED ON THE PRIMARY CLINICAL RECORDS. [facility] [employer] [facility]. provides no warranty or guarantee of the accuracy or completeness of information in this document.
[2025-10-02 11:36] LABS: Hematocrit 35.5 % (36.0-48.0); Hemoglobin 11.9 g/dL (12.0-16.0); Immature Granulocytes Abs Auto 0.00 10^3/uL (0.00-0.03); Immature Granulocytes Pct Auto 0.0 % (0.0-0.5); Lymphocytes Absolute Auto 1.1 10^3/uL (1.2-3.8); Mean Corpuscular HGB Conc 33.5 g/dL (29.9-35.2); Mean Corpuscular Hemoglobin 30.4 pg (26.7-34.0); Mean Corpuscular Volume 90.6 fL (81.0-99.0); Platelet Count 362 10^3/uL (150-450); Red Blood Count 3.92 10^6/uL (4.20-5.40); White Blood Count 3.3 10^3/uL (4.0-11.0)
[2025-10-02 11:42] LABS: Anion Gap 12.8; Blood Urea Nitrogen 9.0 mg/dL (7.0-18.0); Calcium 9.0 mg/dL (8.5-10.1); Carbon Dioxide 27.5 mmol/L (21.0-32.0); Chloride 105 mmol/L (98-107); Estimated GFR (African America >60 (>=60 mL/min/1.73m^2); Estimated GFR (Non-African Ame >60 (>=60 mL/min/1.73m^2); Glucose 92 mg/dL (74-106); Potassium 4.3 mmol/L (3.5-5.1); Sodium 141 mmol/L (136-145)
== END 2025-10-02 11:03 | disposition home or self-care (01) ==
PROVIDERS: Family Provider Urology; PCP Student in an Organized Health Care Education/Training Program; Visit Provider Student in an Organized Health Care Education/Training Program
DX: D72.819 Decreased white blood cell count, unspecified (principal)
CPT/HCPCS: 36415; 80048; 85025; 86900; 86901